=== PATIENT | male | born 1975 | race Caucasian/White ===

== ENCOUNTER 2018-07-29 00:34 | Emergency (ER) | payer BC, SELFPAY ==
[2018-07-29 00:35] VITALS: BP 143/101; PULSE 87; RESP 18; TEMP 36.6; O2SAT 97; BMI 35.2
--- NOTE | 2018-07-29 00:49 | EKG12_ITS ---
Test Reason : CP Blood Pressure : / mmHG Vent. Rate : 087 BPM Atrial Rate : 087 BPM P-R Int : 164 ms QRS Dur : 106 ms QT Int : 356 ms P-R-T Axes : 045 -16 027 degrees QTc Int : 428 ms Normal sinus rhythm Minimal voltage criteria for LVH, may be normal variant Borderline ECG Confirmed by ISACC EMERSON, JULISA ([id number]), editorial clerk MARIO HANSON ([id number]) on 08/03/2018 9:50:58 AM Referred By: GIOVANNY Confirmed By:JULISA DEXTER MD
--- NOTE | 2018-07-29 00:49 | RAD_ITS ---
HISTORY: Chest Pain EXAM:XR Chest 2 Views: COMPARISON: None FINDINGS: EKG leads in place. On the frontal view, shallow inspiration with mild hypoventilation of the lung bases. No acute infiltrate. Normal heart size. No vascular congestion or pleural effusion. No pneumothorax. The bony thorax appears intact. History of RAD/Chest PA and Lateral IMPRESSION: No acute cardiopulmonary disease. at 0226 Reported and signed by: Med Thomas MD Electronically Signed: Med Thomas, at 2:25 EST Tel , Service support ,
[2018-07-29] MEDS: Aspirin 81 MG TAB.CHEW 324 MG PO (00:56)
[2018-07-29 00:58] VITALS: BP 140/98; PULSE 78; RESP 16; O2SAT 98
[2018-07-29 01:08] LABS: Absolute Lymphocyte Count 3.83 X10^3/ul (0.83-4.51); Absolute Neutrophil Count 5.3 X10^3/uL (2.0-7.7); Basophil# 0.04 X10^3/uL; Basophil% 0.4 % (0-1); Eosinophil# 0.26 X10^3/uL; Eosinophils% 2.6 % (0-5); Hematocrit 41.4 % (40-54); Hemoglobin 13.9 g/dl (13.0-16.5); Lymphocyte # 3.83 X10^3/ul (4.0); Lymphocyte % 38.5 % (19-41); Mean Corp Hgb Conc 33.6 g/gl (32-36); Mean Corpuscular Hgb 28.7 pg (27.0-32.0); Mean Corpuscular Volume 85.5 fL (80-94); Mean Platelet Vol. 9.8 fl (6.2-12.0); Monocyte# 0.53 X10^3/uL; Monocyte% 5.3 % (0-10); Neutrophil # 5.26 X10^3/uL (2.7-7.7); Neutrophil % 52.9 % (47-70); Platelet Count 301 K/mm3 (150-450); RBC Distribution Width CV 13.1 % (11.6-14.6); RBC Distribution Width SD 41.1 fl (35.1-43.9); Red Blood Count 4.84 M/mm3 (4.6-6.2)
[2018-07-29 01:09] LABS: POSITIVE COUNT NO; POSITIVE DIFFERENTIAL NO; POSITIVE MORPHOLOGY NO
[2018-07-29 01:28] LABS: Anion Gap 8 (5-15); BUN 22 mg/dL (7-18); BUN/Creat Ratio 19.3 RATIO (10-20); Calcium,Total 8.7 mg/dL (8.5-10.1); Chloride 105 mmol/L (98-107); Creatinine, Serum 1.14 mg/dL (0.70-1.30); EST Glomerular Filtration Rate 75 mL/min (>60); Est Glom Filt Rate - Afr Amer 90 mL/min (>60); Estimated Creatinine Clearance 100.89 ml/min; Glucose 106 mg/dL (74-106); Potassium 4.1 mmol/L (3.5-5.1); Sodium Level 138 mmol/L (136-145)
[2018-07-29 02:16] VITALS: BP 134/90; PULSE 68; RESP 16; O2SAT 96
--- NOTE | 2018-07-29 02:45 | ED.DCSUM_ITS ---
- ER Visit Summary Date of Service: 07/29/18 Chief Complaint: Chest pain History of Present Illness: The patient is a 42 M who presents with chest pain. It began about 4 hours ago while at rest. He describes it as a heaviness in his left upper chest. He also had a sharp pain in his left wrist. He states he just feels weird. He also reports nausea. No vomiting diaphoresis shortness of breath. 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 He denies any recent illness. There is a family history of coronary disease in his father had an OH in his 40s. Patient states he had a normal cardiac catheterization 12 years ago. He has no medical problems such as diabetes hypertension hyperlipidemia. He has not a smoker. Physical Examination: Afebrile vitals are unremarkable except blood pressure 143/101 Moist mucous membranes Heart regular rate and rhythm Lungs are clear Abdomen soft nontender nondistended Extremities nontender with symmetric pulses Test Results: EKG shows normal sinus rhythm at a rate of 87 with no acute ischemic changes. CBC BMP unremarkable. Troponin is negative. Two-view chest x-ray shows no acute disease. Emergency Department Course and Treatment: Patient's DI risk score is 0. His heart score is 1. He presents with atypical symptoms. He had already had symptoms for 4 hours at the time of presentation with a negative troponin. I feel this is very unlikely to be due to cardiac ischemia. I do believe he is appropriate for discharge and outpatient follow-up. He was instructed on specific signs and symptoms to monitor for. He understands to return for new or worsening symptoms. All questions answered bedside. Patient agreeable to this plan. Patient is discharged. Treatment Plan: [] Disposition: Discharge Impression: Chest pain This note was generated with [employer] dictation software. It may contain incorrect words, spelling, and punctuation that were not noted in review of the chart prior to signing ED Disposition - Plan for ED Patient: Referrals: Stef Goodman MD [Primary Care Provider] -
--- NOTE | 2018-07-29 02:45 | ED.DEP ---
ED Disposition - Plan for ED Patient: Instructions: ED Chest Pain Atypical Unkn Cause Referrals: Stef Goodman MD [Primary Care Provider] -
[2018-07-29 02:54] VITALS: BP 131/90; PULSE 64; RESP 12; O2SAT 95
== END 2018-07-29 02:54 | disposition home or self-care (01) ==
LOC: ED 01:07
PROVIDERS: Emergency Provider Emergency Medicine; Family Provider Internal Medicine; PCP Internal Medicine
DX: R07.9 Chest pain, unspecified (principal); Z72.0 Tobacco use; Z82.49 Family history of ischemic heart disease and other diseases of the circulatory system
CPT/HCPCS: 71046; 80048; 84484; 85025; 93005; 99285; A4216

== ENCOUNTER 2019-09-19 15:53 | Emergency (ER) | payer BC, SELFPAY ==
[2019-09-19 15:53] VITALS: BP 168/79; PULSE 95; RESP 16; TEMP 36.9; O2SAT 98; BMI 33.7; BMI 35.2
--- NOTE | 2019-09-19 16:00 | ED.VIS.LOWEX ---
History of Present Illness Chief Complaint: Lower Extremity Injury Informant: Patient Occurred: Hours - 1 Mechanism/Context: - - twisted ankle while coming down a step outside his home Context: Sudden Onset Timing: Continuous Quality of Pain: Aching - and felt a pop lateral left ankle Location: left ankle Current Severity: Moderate Maximum Severity: Severe Worsened by: trying to WB Relieved by: rest, not moving Associated Symptoms: Loss of Funtion - can't weight bear LLE now. Negative for: Parasthesia, Weakness Narrative: Denies other injury. Pain limited to lateral ankle, lateral/dorsal midfoot. Past Medical History - Allergies and Home Meds Allergies/Adverse Reactions: Allergies No Known Allergies Allergy (Verified 09/19/19 15:54) Primary Care Physician: Stef Goodman MD [Primary Care Provider] - Past Medical History: None Lives: With Family Smoking Status: Former smoker Review of Systems Musculoskeletal: Reports: Extremity Pain Skin: Denies: Rash, Wounds Neurological: Denies: Headache, Weakness, Numbness Physical Exam Vital Signs/Narrative: Vital Signs Temp Pulse Resp BP Pulse Ox 09/19/19 15:53 98.4 F 95 16 168/79 H 98 Inital Vital Signs reviewed: Yes - Extremity Exam Left Ankle: Limited ROM, - - Mild lateral ankle swelling, and tenderness just distal and anterior to the lateral malleolus. The posterior aspect of the malleolus and the rest of the fibula including the head are nontender, the anterior aspect is tender. The base of the fifth metatarsal was nontender as is the rest of the foot. No instability or medial malleolus tenderness, no deformities. General: Well nourished, Well developed, - - nad Skin: Normal color, No rash, No Trauma, - - Skin intact Neurological: Alert, Oriented x3, Cranial nerves II-XII grossly intact, Normal Strength, Normal Sensation Psychological: Normal affect, Normal Mood Diagnostic/Tx/Re-eval - Medical Decision Making On my interpretation 3 view x-ray of the left ankle are negative and unremarkable. Consistent with a sprain, as is his exam. Given an Aircast, ibuprofen, crutches and appropriate instructions for follow-up. ED Disposition - Plan for ED Patient: Disposition: Home or Assisted Living Diagnosis: Left ankle sprain Instructions: ED Sprain Ankle W X Ray Referrals: Stef Goodman MD [Primary Care Provider] - 1-2 Weeks (if not improving) Additional Instructions: Ibuprofen as needed for pain, swelling.
--- NOTE | 2019-09-19 16:15 | RAD_ITS ---
STUDY: X-RAY - LEFT ANKLE REASON FOR EXAM: Male, 44 years old. Pt twisted left ankle today. Generalized pain. TECHNIQUE: 3 view(s) of the ankle. COMPARISON: None. FINDINGS: Normal visualized distal tibia and fibula. Normal medial and lateral malleoli. Normal tibiotalar articulation and ankle mortise. Normal visualized talus and calcaneus. The visualized subtalar, talonavicular, calcaneocuboid and tarsal articulations are normal. The soft tissue structures are unremarkable. RAD/Ankle min 3 Views IMPRESSION: No acute osseous injury. Electronically Signed: Asha Farah MD at 16:49 EDT Tel , Service support ,
[2019-09-19] MEDS: Ibuprofen 600 MG Tablet PO (16:20)
== END 2019-09-19 16:55 | disposition home or self-care (01) ==
PROVIDERS: Emergency Provider Emergency Medicine; PCP Internal Medicine
DX: S93.402A Sprain of unspecified ligament of left ankle, initial encounter (principal); Z87.891 Personal history of nicotine dependence; X50.1XXA Overexertion from prolonged static or awkward postures, initial encounter
CPT/HCPCS: 73610; 99284

== ENCOUNTER → 2020-01-14 16:39 | Outpatient (CLI) | payer BC, SELFPAY ==
--- NOTE | 2020-01-14 | VAS_PTH ---
PATIENT: YUDY MILLAN LOC: [facility] U#:[id number] AGE/SX: 49/M ROOM: RE01/14/[address]: Dr. Giovanny Larios MD : 1975 BED: DIS: SPEC #: [id number] RECD: 01/14/20 16:16 STATUS: SHELIA ANITA #: [id number] TALHA: 01/14/20 00:[address]: Giovanny Larios DEPT: SURGICAL PATHOLOGY RECD BY: Cameron Carson ENTERED: 01/17/20 08:00 SP TYPE: VAS OTHR DR: Dr. Stef Goodman MD Tissues: A - Vas deferens, NOS B - Vas deferens, NOS Procedures: Surgery Specimen Level II HEADER OPERATION: Bilateral partial vasectomy PRE-OP DIAGNOSIS: Sterilization TISSUE SUBMITTED: A - Right vas deferens, B - Left vas deferens MICROSCOPIC DIAGNOSIS A. Right vas deferens, partial vasectomy: Complete segment of vas deferens with no pathologic change. B. Left vas deferens, partial vasectomy: Complete segment of vas deferens with no pathologic change. AM:gela 01/18/20 MICROSCOPIC DESCRIPTION Slides are reviewed. GROSS DESCRIPTION A - Received is one container designated right vas deferens. The specimen consists of a cylindrical segment of pink-almaraz soft tissue measuring 1.2 cm in length and 0.2 cm in maximum diameter. The specimen is serially sectioned and totally submitted in one cassette. B - Received is one container designated right vas deferens. The specimen consists of a cylindrical segment of pink-almaraz soft tissue measuring left 1.3 cm in length and 0.2 cm in maximum diameter. The specimen is serially sectioned and totally submitted in one cassette. / AM:gela 01/17/20 TC:4 [facility]: [id number] x2
[2020-01-14 15:53] VITALS: BMI 33.7
== END ==
PROVIDERS: PCP Internal Medicine; Referring Provider Surgery; Visit Provider Surgery
DX: Z30.2 Encounter for sterilization (principal)
CPT/HCPCS: 88302

== ENCOUNTER → 2020-04-06 15:39 | Outpatient (CLI) | payer BC, SELFPAY ==
[2020-01-14 15:53] VITALS: BMI 33.7
[2020-04-05 16:43] LABS: Hematocrit 42.2 % (40-54); Hemoglobin 13.7 g/dL (13.0-16.5); Mean Corp Hgb Conc 32.5 g/dL (32-36); Mean Corpuscular Volume 86.3 fL (80-94); Mean Platelet Vol. 10.1 fl (6.2-12.0); Platelet Count 353 K/mm3 (150-450); RBC Distribution Width CV 12.9 % (11.6-14.6); Red Blood Count 4.89 M/mm3 (4.6-6.2); White Blood Count 9.5 K/mm3 (4.4-11.0)
[2020-04-05 17:14] LABS: Anion Gap 6 (5-15); BUN 16 mg/dL (7-18); Calcium,Total 8.8 mg/dL (8.5-10.1); Chloride 105 mmol/L (98-107); EST Glomerular Filtration Rate 86 mL/min (>60); Est Glom Filt Rate - Afr Amer 104 mL/min (>60); Glucose 84 mg/dL (74-106); Sodium Level 139 mmol/L (136-145)
--- NOTE | 2020-04-06 15:34 | EKG12_ITS ---
Test Reason : PRE OP Blood Pressure : / mmHG Vent. Rate : 074 BPM Atrial Rate : 074 BPM P-R Int : 166 ms QRS Dur : 100 ms QT Int : 380 ms P-R-T Axes : 036 -15 -01 degrees QTc Int : 421 ms Normal sinus rhythm Normal ECG Confirmed by RAMANA EMERSON, WENDY ([id number]), newspaper editor BANDAR FULLER ([id number]) on 04/10/2020 8:02:41 AM Referred By: Jun Mccrary Confirmed By:WENDY BOLES MD
== END ==
PROVIDERS: PCP Internal Medicine; Referring Provider Orthopaedic Surgery; Visit Provider Orthopaedic Surgery
DX: Z01.818 Encounter for other preprocedural examination (principal)
CPT/HCPCS: 36415; 80048; 85027; 87635; 93005; C9803; U0003

== ENCOUNTER 2020-09-19 05:51 | Emergency (ER) | payer BC, SELFPAY ==
[2020-01-14 15:53] VITALS: BMI 33.7
[2020-09-19 05:53] VITALS: BP 149/94; PULSE 65; RESP 12; TEMP 36.1; O2SAT 95; BMI 36.3
--- NOTE | 2020-09-19 06:05 | CT_ITS ---
STUDY: CT BRAIN WITHOUT CONTRAST REASON FOR EXAM: Male, 45 years old. New onset vertigo RADIATION DOSAGE (If Supplied By Facility): CTDIvol = ( 44.99 ) mGy, DLP = ( 796.11 ) mGycm TECHNIQUE: Transaxial CT imaging of the brain was performed without administration of intravenous contrast material. Individualized dose optimization techniques were used for this CT. COMPARISON: No relevant priors. FINDINGS: Normal soft tissue structures. Normal calvarium. Normal size ventricles and extra-axial spaces for the patient''s age. Normal white matter tracts of the cerebral hemispheres. Normal basal ganglia and thalami. Normal brainstem. Normal cerebellum. There is no intracranial hemorrhage. There are no findings of an acute ischemic infarction. There is minimal ethmoid sinus mucosal thickening. The mastoid air cells are clear. CT/Brain/Head without Contrast IMPRESSION: Normal unenhanced CT scan of the brain. Electronically Signed: Laura López MD at 6:57 EDT Tel , Service support ,
[2020-09-19] MEDS: Meclizine HCl 25 MG Tablet PO (06:14)
--- NOTE | 2020-09-19 06:26 | ED.VIS.GEN ---
History of Present Illness Chief Complaint: Dizziness Informant: Patient Narrative: Patient is a 45-year-old previously healthy male who presents to the emergency department for dizziness. This woke him up out of his sleep around 4 AM this morning. He feels like the room is spinning around him. He states that it felt like he was spinning so bad that he could potentially pass out. His symptoms are improving at this point. Not tried taking anything for it. He has been nauseous and dry heaving with it. He is getting over a sinus infection. He has been having a runny nose and a mild cough. He just completed a course of amoxicillin for this. He denies any ear pain or ringing in his ears. He denies a sore throat. He has been using an allergy medication. No headache. No weakness or loss of sensation in any arm or leg. He denies any chest pain, shortness of breath or heart palpitations. He denies any history of strokes, DVT/PE or heart attacks. He has never had vertigo before. No neck stiffness. Patient has had a negative Covid test at the onset of his symptoms. Past Medical History - Allergies and Home Meds Allergies/Adverse Reactions: Allergies No Known Allergies Allergy (Verified 09/19/20 05:52) Primary Care Physician: Stef Goodman MD [Primary Care Provider] - 2 Days Prior records reviewed: Yes Past Medical History: None Surgical History: noncontributory Smoking Status: Never smoker Review of Systems All systems negative except as indicated General: Denies: Chills, Fever, Sweats Eyes: Denies: Visual changes - bilaterally, Diplopia ENT: Reports: - - Sinus pressure. Denies: Rhinorrhea, Sore throat Cardiovascular: Denies: Chest pain, Palpitations Respiratory: Denies: Dyspnea, Cough, Dyspnea on exertion Gastrointestinal: Reports: Nausea. Denies: Abdominal pain, Vomiting, Diarrhea, Melena, Hematochezia Genitourinary: Denies: Dysuria, Hematuria, Frequency Musculoskeletal: Denies: Back pain, Extremity Pain Skin: Denies: Rash, Wounds Neurological: Reports: - - Vertigo. Denies: Headache, Weakness, Numbness Physical Exam Vital Signs/Narrative: Vital Signs Temp Pulse Resp BP Pulse Ox 09/19/20 05:53 97.0 F L 65 12 149/94 H 95 Inital Vital Signs reviewed: Yes General: Well nourished, Well developed, No Acute Distress Head: Normocephalic, Atraumatic Eyes: Perrl, EOMI, - - Fatigable nystagmus bilaterally but worse to the right. Negative test of skew ENT: Moist mucous membranes, No rhinorrhea, TM's clear, - Neck: Supple, Nontender Cardiovascular: Regular rate, Regular rhythm, No murmurs Respiratory: No distress, CTA bilaterally, Chest nontender Abdomen: Soft, Nontender, Nondistended, Normal bowel sounds Back: Nontender, Normal Inspection Extremities: Nontender, No edema Skin: Normal color, No rash Neurological: Alert, Oriented x3, Cranial nerves II-XII grossly intact, Normal Strength, Normal Sensation, - - No discoordination with [id number] and qcew-[id number]-[id number] test. Negative for: Left side facial droop, Right side facial droop Psychological: Normal affect, Normal Mood Diagnostic/Tx/Re-eval - Medical Decision Making Patient presents to the ED for vertigo-like symptoms. The room has been spinning around him and has been getting nauseous with this. When keeping his head perfectly still he feels like his symptoms are resolving. He does not have any focal deficits on physical exam. I have low concern for cerebellar stroke. Since this is new onset will check a CT scan of the head for any obvious masses or bleeds. He is given a dose of meclizine for symptomatic treatment. This does not sound like lightheadedness is in his going to pass out due to cardiac issue with any arrhythmia, ACS. Patient CT scan of his head did not reveal any acute intracranial abnormalities. After the meclizine treatment he is feeling much better. He was able to get up and walk around the room without any repeat symptoms. He does feel comfortable going home at this time. I believe that this is most likely peripheral vertigo. I would not expect a cerebellar stroke to have such rapid improvement. I did write him a prescription for the meclizine. He needs to follow-up with his PCP. Return precautions including any worsening symptoms, severe headaches or any focal deficits are reviewed with him. He is agreeable with this plan. All questions answered. ED Disposition - Plan for ED Patient: Disposition: Home or Assisted Living Diagnosis: Vertigo Instructions: ED Vertigo, Unspecified Prescriptions: Meclizine HCl 25 mg PO TID #20 tablet Transmission Status: Received by [id number] Referrals: Stef Goodman MD [Primary Care Provider] - 2 Days
[2020-09-19 07:07] VITALS: BP 140/88; PULSE 67; RESP 18; O2SAT 99
== END 2020-09-19 07:08 | disposition home or self-care (01) ==
PROVIDERS: Emergency Provider Emergency Medicine; PCP Internal Medicine
DX: R42 Dizziness and giddiness (principal); R05 Cough; R11.0 Nausea
CPT/HCPCS: 70450; 99283

== ENCOUNTER 2020-09-21 20:58 | Emergency (ER) | payer BC, SELFPAY ==
[2020-09-21 20:59] VITALS: BP 150/100; PULSE 67; RESP 16; TEMP 36.4; O2SAT 99; BMI 34.9
[2020-09-21 21:06] VITALS: BP 142/106; PULSE 67; RESP 15; O2SAT 95
--- NOTE | 2020-09-21 21:31 | EKG12_ITS ---
Test Reason : NUMBNESS/TINGLING Blood Pressure : / mmHG Vent. Rate : 069 BPM Atrial Rate : 069 BPM P-R Int : 170 ms QRS Dur : 102 ms QT Int : 404 ms P-R-T Axes : 017 -15 -03 degrees QTc Int : 432 ms Normal sinus rhythm Minimal voltage criteria for LVH, may be normal variant Borderline ECG Confirmed by RAMANA EMERSON, WENDY ([id number]), film editor supervisor BANDAR FULLER ([id number]) on 09/22/2020 12:56:30 PM Referred By: ANIYAH Confirmed By:WENDY BOLES MD
--- NOTE | 2020-09-21 21:33 | CT_ITS ---
STUDY: CTA HEAD AND NECK WITH CONTRAST REASON FOR EXAM: Male, 45 years old. vertigo RADIATION DOSAGE (If Supplied By Facility): CTDIvol = ( 12.67 ) mGy, DLP = ( 1639.55 ) mGycm TECHNIQUE: CT angiography was performed with a multi-detector CT scanner. Data acquisition was obtained from the skull base through the vertex following intravenous administration of . MIP images were reconstructed from the axial data set. Post-processing of the angiographic images was performed, with multiplanar reformation and 3D reconstruction. Individualized dose optimization techniques were used for this CT. COMPARISON: No relevant priors. FINDINGS: Normal bilateral petrous carotid arteries. Normal right cavernous carotid artery with a normal supraclinoid bifurcation. Normal left cavernous carotid artery with a normal supraclinoid bifurcation. Normal right A1 segments of the anterior cerebral artery. Normal left A1 segments of the anterior cerebral artery. Normal intact anterior communicating artery (ACOM). Normal bilateral A2 segments of the anterior cerebral arteries. Normal right M1 and M2 segments of the middle cerebral arteries, with a normal M1 bifurcation. Normal left M1 and M2 segments of the middle cerebral arteries, with a normal M1 bifurcation. Posterior communicating arteries are not visualized consistent with normal variant.). Normal bilateral vertebral arteries. Normal basilar artery with a normal basilar bifurcation. The visualized bilateral superior cerebellar (SCA) arteries are normal. Normal bilateral P1, P2 and visualized P3 segments of the posterior cerebral arteries. There is no demonstrated aneurysm of the [place] of [place]. There is no demonstrated abnormality of the visualized brain. AORTIC ARCH: Normal visualized aortic arch. Normal origins of the brachiocephalic, left common carotid, and left subclavian arteries. RIGHT CAROTID ARTERIES: Normal right common carotid artery (CCA). Normal right common carotid bulb. Normal origin of the right internal carotid (ICA) artery without a hemodynamically significant stenosis. Normal visualized cervical portion of the right internal carotid artery. Normal origin of the right external carotid artery (ECA). LEFT CAROTID ARTERIES: Normal left common carotid artery (CCA). Normal left common carotid bulb. Normal origin of the left internal carotid (ICA) artery without a hemodynamically significant stenosis. Normal visualized cervical portion of the left internal carotid artery. Normal origin of the left external carotid artery (ECA). VERTEBRAL ARTERIES: Normal bilateral vertebral arteries. Incidental finding of large retrosternal nodular thyroid goiter larger on the left CT/CTA Head AND Neck W/ Contrast IMPRESSION: Normal CTA Head and neck with contrast. Incidental finding of retrosternal nodular thyroid goiter larger on the left which may be further assessed with ultrasound if clinically indicated Electronically Signed: Thuan Martins MD at 22:58 EDT , Service support ,
[2020-09-21 21:40] LABS: Absolute Lymphocyte Count 2.46 X10^3/uL (0.83-4.51); Basophil# 0.05 X10^3/uL; Basophil% 0.5 % (0-1); Eosinophil# 0.21 X10^3/uL; Eosinophils% 2.3 % (0-5); Hematocrit 44.7 % (40-54); Hemoglobin 14.4 g/dL (13.0-16.5); Lymphocyte # 2.46 X10^3/ul (4.0); Lymphocyte % 26.6 % (19-41); Mean Corp Hgb Conc 32.2 g/dL (32-36); Mean Corpuscular Hgb 27.9 pg (27.0-32.0); Mean Corpuscular Volume 86.5 fL (80-94); Mean Platelet Vol. 10.2 fl (6.2-12.0); Monocyte# 0.44 X10^3/uL; Monocyte% 4.8 % (0-10); NRBC Flagged by Analyzer 0 % (0-5); Neutrophil # 6.04 X10^3/uL (2.7-7.7); Neutrophil % 65.3 % (47-70); Platelet Count 369 K/mm3 (150-450); RBC Distribution Width CV 12.5 % (11.6-14.6); RBC Distribution Width SD 39.4 fl (35.1-43.9); Red Blood Count 5.17 M/mm3 (4.6-6.2); White Blood Count 9.3 K/mm3 (4.4-11.0)
--- NOTE | 2020-09-21 21:42 | RAD_ITS ---
STUDY: X-RAY CHEST REASON FOR EXAM: Male, 45 years old. vertigo TECHNIQUE: AP portable COMPARISON: 07/29/2018. FINDINGS: Minor interstitial thickening in the right lower lobe.. There is no demonstrated pleural abnormality. Borderline cardiomegaly. Normal mediastinum and karen. Normal visualized pulmonary arteries. Normal visualized aortic arch and descending thoracic aorta. Normal visualized thoracic spine. Normal visualized ribs, clavicles, and shoulders. Mild deviation of the trachea towards the right which may be on the basis of enlargement of the left lobe of the thyroid There is no demonstrated abnormality of the visualized soft tissue structures of the upper abdomen. RAD/Chest 1 View (Portable) IMPRESSION: No acute cardiopulmonary pathology Question mild left thyromegaly. This may be further assessed with ultrasound if clinically indicated Electronically Signed: Thuan Martins MD at 22:14 EDT , Service support ,
[2020-09-21] MEDS: 0.9% Normal Saline 1,000 ML 1000 ML IV (21:44)
[2020-09-21] MEDS: LORazepam 2 MG/ML Syringe 1 MG IV (21:44)
[2020-09-21 21:45] LABS: Prothrombin Time (Protime)PT. 12.7 SECONDS (11.7-14.9)
[2020-09-21 22:01] VITALS: PULSE 91; RESP 14; O2SAT 99
[2020-09-21 22:14] LABS: Anion Gap 4 (5-15); BUN 17 mg/dL (7-18); BUN/Creat Ratio 16.8 RATIO (10-20); Chloride 104 mmol/L (98-107); Creatinine, Serum 1.01 mg/dL (0.70-1.30); EST Glomerular Filtration Rate 85 mL/min (>60); Est Glom Filt Rate - Afr Amer 103 mL/min (>60); Estimated Creatinine Clearance 110.39 ml/min; Glucose 103 mg/dL (74-106); Potassium 3.9 mmol/L (3.5-5.1); Sodium Level 136 mmol/L (136-145)
[2020-09-21 22:50] LABS: Thyroid Stim Hormone (TSH) 2.92 uIU/mL (0.358-3.74)
[2020-09-21 23:03] VITALS: BP 147/98; PULSE 64; RESP 18; O2SAT 99
--- NOTE | 2020-09-21 23:20 | ED.DCSUM_ITS ---
- ER Visit Summary Date of Service: 09/21/20 Chief Complaint: Dizziness History of Present Illness: The patient is a 45 M with dizziness for 3 days. He feels like the room is spinning. Worse with movement. He was seen in the ED for this previously. He had imaging that was unremarkable. He was prescribed meclizine, but it is not working. He reports some paresthesias in his left fourth and fifth digits that radiates up into his axilla on the ulnar side of his arm. No other symptoms with this. No hearing changes, vision changes, speech changes, facial droop, weakness, or numbness. Physical Examination: Afebrile and vital signs unremarkable except blood pressure 142/106. HEENT exam unremarkable. Cranial nerves intact. NIH stroke scale is 1 for paresthesias in his fingers. Test Results: EKG showed sinus rhythm at a rate 69. Chest x-ray showed mild lateral megaly. CT head and neck showed nothing acute but he does have a thyroid goiter. CBC, metabolic panel, coags, troponin, TSH unremarkable. Emergency Department Course and Treatment: This sounds like peripheral vertigo. I am concerned because the meclizine was not working and his symptoms have worsened. CTA ordered as above. He was treated with Ativan. His symptoms completely resolved. He was able to eat and ambulate without assistance. I advised the patient that I believe this is peripheral vertigo. I cannot rule out central vertigo without further inpatient evaluation, but central vertigo/stroke is extremely unlikely. His paresthesias for a C8 dermatome pattern. He has no other stroke symptoms. Shared decision-making was utilized. Patient would like to try outpatient follow-up. He was referred to ENT. Prescription for Valium as needed. Follow- up with primary care for a thyroid goiter. Treatment Plan: As above Disposition: Discharge Impression: Vertigo, thyroid goiter This note was generated with [employer] dictation software. It may contain incorrect words, spelling, and punctuation that were not noted in review of the chart prior to signing ED Disposition - Plan for ED Patient: Referrals: Stef Goodman MD [Primary Care Provider] -
--- NOTE | 2020-09-21 23:24 | ED.DEP ---
ED Disposition - Plan for ED Patient: Instructions: ED Vertigo, Unspecified Prescriptions: Diazepam [Valium] 2 mg PO TID PRN PRN #9 tab PRN Reason: Vertigo Prescription Printed Referrals: Ernie Jamil MD [STAFF PHYSICIAN] - Stef Goodman MD [Primary Care Provider] -
[2020-09-21 23:25] VITALS: BP 104/104; PULSE 60; RESP 19; O2SAT 97
== END 2020-09-21 23:33 | disposition home or self-care (01) ==
LOC: ED 21:33
PROVIDERS: Emergency Provider Emergency Medicine; PCP Internal Medicine
DX: R42 Dizziness and giddiness (principal); E04.9 Nontoxic goiter, unspecified; R20.2 Paresthesia of skin
CPT/HCPCS: 70496; 70498; 71045; 80048; 84443; 84484; 85025; 85610; 85730; 93005; 96374; 99285; J7030; Q9967; A4216

== ENCOUNTER 2022-07-16 22:57 | Inpatient (IN) | payer BC, SELFPAY ==
[2022-07-16 22:57] VITALS: BP 164/100; PULSE 75; RESP 17; TEMP 36.8; O2SAT 97; BMI 37.3
--- NOTE | 2022-07-16 23:26 | EKG12_ITS ---
Test Reason : REPEAT CP Blood Pressure : / mmHG Vent. Rate : 059 BPM Atrial Rate : 059 BPM P-R Int : 170 ms QRS Dur : 100 ms QT Int : 420 ms P-R-T Axes : 021 -13 -06 degrees QTc Int : 415 ms Sinus bradycardia Otherwise normal ECG When compared with ECG of 16-JUL-2022 23:00, MANUAL COMPARISON REQUIRED, DATA IS UNCONFIRMED Confirmed by ISACC EMERSON, JULISA ([id number]), non linear editor BANDAR FULLER ([id number]) on 07/22/2022 9:30:29 AM Referred By: LINK Confirmed By:JULISA DEXTER MD
--- NOTE | 2022-07-16 23:26 | RAD_ITS ---
EXAM: XR CHEST, 2 VIEWS CLINICAL INDICATION: chest pain TECHNIQUE: Frontal and lateral views of the chest. This report was created using [employer] report generation technology. COMPARISON: 09/21/2020. FINDINGS: LUNGS AND PLEURAL SPACES: Unremarkable. No consolidation or edema. No pneumothorax. No effusion. HEART: Unremarkable. Cardiac silhouette not enlarged. MEDIASTINUM: Central airways and mediastinal contour are unremarkable. BONES/JOINTS: Unremarkable. SOFT TISSUES: Unremarkable. RAD/Chest PA and Lateral IMPRESSION: No radiographic evidence of acute cardiopulmonary disease. Electronically Signed: Jun Ulrich MD at 23:58 EST ,
--- NOTE | 2022-07-16 23:29 | EX.ED.DYSGE1 ---
HPI History of Present Illness Chief Complaint: Chest Pain Narrative Narrative: Patient is a 46-year-old male with a past medical history of viral myocarditis and chews nicotine. He also reports a past medical history of hypothyroidism secondary to thyroid removal from thyroid cancer. he states that today horses got out and he was running through the snow on mud trying to find them and he tripped and fell and caught himself with his arms. He states that he did not feel pain right away but a few hours later began to notice pain in his left chest wall. He states his father had a heart attack at age 49 which is roughly his age and the fact he has had myocarditis in the past he is concerned that this chest pain is not muscle but truly cardiac and secondary to his comes in for evaluation. He denies any nausea vomiting diaphoresis shortness of breath associated with this. He denies any recent travel surgery or history of DVT/PE. [facility] Medical History (Updated 07/17/22 @ 02:[address] Janiya Lee MD) Chewing tobacco use History of viral myocarditis Hypothyroidism Obesity Thyroid cancer Home Medications cholecalciferol (vitamin D3) 1,250 mcg (50,000 unit) capsule 5,000 unit PO DAILY 07/17/22 [History Last Taken Unknown] levothyroxine 150 mcg tablet 150 mcg PO DAILY 07/17/22 [History Last Taken Unknown] levothyroxine 200 mcg tablet 200 mcg PO DAILY 07/17/22 [History Last Taken Unknown] Allergy/AdvReac Type Severity Reaction Status Date / Time No Known Allergies Allergy Verified 09/21/20 21:00 Family History (Updated 07/17/22 @ 01:[address] Janiya Lee MD) Father Diabetes Hypertension CAD (coronary artery disease) Myocardial infarction Mother Hypertension Surgical History (Updated 07/17/22 @ 02:[address] Janiya Lee MD) H/O vasectomy History of appendectomy History of arthroplasty of right knee History of thyroidectomy Social History (Updated 01/24/20 @ 14:[address] Giovanny Larios MD) Smoking Status: Never smoker Smokeless tobacco user: chewing tobacco ROS ROS ED Constitutional Constitutional ED: Denies chills or fever(s) ENT ENT ED: Denies sore throat Cardiovascular Cardiovascular: Reports chest pain; Denies palpitations or racing heartbeat Respiratory/Chest Respiratory/Chest: Denies cough or dyspnea Gastrointestinal Gastrointestinal: Denies abdominal pain, diarrhea, nausea or vomiting Genitourinary Genitourinary ED: Denies dysuria Musculoskeletal Musculoskeletal: Denies myalgias Integumentary Denies rash Neurologic Neurologic: Denies headache(s) Hematologic/Lymphatic Hematologic/Lymphatic: Denies easy bleeding or easy bruising EXAM Physical Exam Const Vital Signs: 07/16/22 22:57 07/17/22 00:52 07/17/22 01:46 Temperature 98.2 F Temperature Source Temporal Pulse Rate 75 64 61 Respiratory Rate 17 Blood Pressure 164/100 H 181/108 H 155/105 H Blood Pressure Mean 121 132 Pulse Ox 97 97 Oxygen Delivery Method Room Air Room Air 07/17/22 01:47 07/17/22 01:51 07/17/22 02:20 Temperature 98.1 F Temperature Source Temporal Pulse Rate 61 69 62 Respiratory Rate 18 18 Blood Pressure 155/105 H 143/92 H 153/97 H Blood Pressure Mean 121 115 Pulse Ox 98 97 Oxygen Delivery Method Room Air Room Air Positive well nourished and well developed General Appearance ED: well developed Eyes PERRL and EOMs intact bilaterally Neck supple Chest Wall Chest Narrative: There is mild pain on palpation along the left anterior chest wall without bony deformity or crepitance noted. No overlying soft tissue changes to suggest trauma or infection Resp normal respiratory effort and clear to auscultation bilaterally Cardio regular rate and regular rhythm Rate: other Other Details: Radial pulses are +2-4 bilaterally are equal and symmetric Carotid pulses are equal and symmetric as well GI normal to inspection, nondistended, normoactive bowel sounds, non-tender, non-distended and no masses GI Narrative: No voluntary guarding or rigidity no pulsatile mass Auscultation: normoactive bowel sounds Palpation: soft Extremity normal to inspection Extremity Narrative: No asymmetric edema no pitting edema negative Homans' sign bilaterally Neuro oriented x3 and CN's II-XII intact bilaterally Sensorium / Orientation: alert Psych mental status grossly normal Skin no rashes or lesions noted MDM MDM MDM Narrative Medical decision making narrative: Patient presented to the ER slightly hypertensive but otherwise with stable vitals. He is low risk for cardiovascular disease with his risk factors being family history and that he chews nicotine. However with the persistent pain and the remote history of myocarditis and elected perform a basic cardiac work-up. Blood work [place] [address]. Secondary to this a CTA was added which revealed no clinically significant findings. The case was discussed with cardiology who feels at this time as he has low risk factors and minimal pain there is no need for an emergent cath. They recommend patient be started on a heparin drip as the CTA shows no pericardial effusion. They state that they will most likely perform an echo and a heart cath if his symptoms persist and troponin continues to elevate. The patient did report mild increase in pain towards the end of his work-up as it went from a 2/3 up to a 6. At this time repeat EKG was obtained which also was similar to the initial with no obvious signs of MA or ischemia. Patient was given nitro and had improvement of pain from a 6 down to a 4. At this time he remains hemodynamically stable and secondary to his grossly elevated troponin and need for further work-up from this he will be admitted to the hospital for further care. The case was discussed with the medicine physician on-call and she agrees to admit him to the hospital at this time Lab Data Attestation: I reviewed the patient's lab results. Labs: Laboratory Results - last 24 hr 07/16/22 07/16/22 07/16/22 23:32 23:32 23:32 WBC 8.7 RBC 4.65 Hgb 13.1 Hct 39.5 L MCV 84.9 MCH 28.2 MCHC 33.2 RDW Std Deviation 39.9 RDW Coeff of Colleen 13.0 Plt Count 300 MPV 9.8 Immature Gran % (Auto) 1.300 H Neut % (Auto) 55.4 Lymph % (Auto) 33.8 [place] % (Auto) 6.4 Eos % (Auto) 2.4 Baso % (Auto) 0.7 Absolute Neuts (auto) 4.8 Absolute Lymphs (auto) 2.95 Nucleated RBC % 0 PT 13.1 INR 1.0 APTT 26.8 Sodium 139 Potassium 4.1 Chloride 108 H Carbon Dioxide 27.0 Anion Gap 4 L BUN 21 H Creatinine 1.08 Estim Creat Clear Calc 102.15 Est GFR (MDRD) Af Amer 94 Est GFR (MDRD) Non-Af 78 BUN/Creatinine Ratio 19.4 Glucose 113 H Calcium 8.4 L Magnesium 2.2 Troponin I High Sens 31337 H* TSH 07/16/22 23:32 WBC RBC Hgb Hct MCV MCH MCHC RDW Std Deviation RDW Coeff of [place] Plt Count MPV Immature Gran % (Auto) Neut % (Auto) Lymph % (Auto) [place] % (Auto) Eos % (Auto) Baso % (Auto) Absolute Neuts (auto) Absolute Lymphs (auto) Nucleated RBC % PT INR APTT Sodium Potassium Chloride Carbon Dioxide Anion Gap BUN Creatinine Estim Creat Clear Calc Est GFR (MDRD) Af Amer Est GFR (MDRD) Non-Af BUN/Creatinine Ratio Glucose Calcium Magnesium Troponin I High Sens TSH 0.40 Radiography Diagnostic Testing: Clinical Impression(s) from Imaging Studies Chest X-Ray 07/16/22 23:26 IMPRESSION: No radiographic evidence of acute cardiopulmonary disease. Electronically Signed: Jun Ulrich MD at 23:58 EST , 2 view chest x-ray as interpreted by the emergency medicine physician reveals no acute infiltrate pneumothorax or pleural effusion Discharge Plan Triage Chief Complaint: Chest Pain ED Provider: Ralph Barrientos Dx/Rx/DC Orders Prescriptions: No Action levothyroxine 150 mcg tablet 150 mcg PO DAILY Label Comments: TAKE 1 TABLET BY MOUTH ONCE DAILY. PLEASE TAKE FRIDAY AND FRIDAY Rx Instructions: FRIDAY AND FRIDAY levothyroxine 200 mcg tablet 200 mcg PO DAILY Label Comments: TAKE 1 TABLET BY MOUTH ONCE DAILY. PLEASE TAKE 1 TABLET FRIDAY- FRIDAY Rx Instructions: M-F cholecalciferol (vitamin D3) 1,250 mcg (50,000 unit) capsule 5,000 unit PO DAILY Label Comments: TAKE 1 CAPSULE BY MOUTH ONE TIME A WEEK. Primary Care Provider: Stef Goodman Referrals: Stef Goodman MD [Primary Care Provider] - Disposition Disposition: Acute Care Hospital [facility]
[2022-07-16 23:41] LABS: Absolute Lymphocyte Count 2.95 X10^3/uL (0.83-4.51); Absolute Neutrophil Count 4.8 X10^3/uL (2.0-7.7); Basophil# 0.06 X10^3/uL; Basophil% 0.7 % (0-1); Eosinophil# 0.21 X10^3/uL; Eosinophils% 2.4 % (0-5); Hematocrit 39.5 % (40-54); Hemoglobin 13.1 g/dL (13.0-16.5); Lymphocyte # 2.95 X10^3/ul (0.83-4.51); Lymphocyte % 33.8 % (19-41); Mean Corp Hgb Conc 33.2 g/dL (32-36); Mean Corpuscular Hgb 28.2 pg (27.0-32.0); Mean Corpuscular Volume 84.9 fL (80-94); Mean Platelet Vol. 9.8 fl (6.2-12.0); Monocyte# 0.56 X10^3/uL; Monocyte% 6.4 % (0-10); NRBC Flagged by Analyzer 0 % (0-5); Neutrophil # 4.84 X10^3/uL (2.7-7.7); Neutrophil % 55.4 % (47-70); Platelet Count 300 K/mm3 (150-450); RBC Distribution Width SD 39.9 fl (35.1-43.9); Red Blood Count 4.65 M/mm3 (4.6-6.2); White Blood Count 8.7 K/mm3 (4.4-11.0)
[2022-07-17] VITALS (19 sets, daily range): BP systolic 109–181; BP diastolic 70–108; PULSE 57–76; RESP 16–20; TEMP 36.3–37.2; O2SAT 92–98; BMI 37.8
[2022-07-17 00:01] LABS: Anion Gap 4 (5-15); BUN 21 mg/dL (7-18); BUN/Creat Ratio 19.4 RATIO (10-20); Calcium,Total 8.4 mg/dL (8.5-10.1); Chloride 108 mmol/L (98-107); Creatinine, Serum 1.08 mg/dL (0.70-1.30); EST Glomerular Filtration Rate 78 mL/min (>60); Est Glom Filt Rate - Afr Amer 94 mL/min (>60); Estimated Creatinine Clearance 102.15 ml/min; Glucose 113 mg/dL (74-106); Magnesium 2.2 mg/dL (1.6-2.6); Potassium 4.1 mmol/L (3.5-5.1); Sodium Level 139 mmol/L (136-145); Troponin-I HS 13849 pg/mL (3.0-78.0)
--- NOTE | 2022-07-17 00:01 | CT_ITS ---
STUDY: CTA CHEST REASON FOR EXAM: Male, 46 years old patient with chest pain. RADIATION DOSAGE (If Supplied By Facility): CTDIvol = ( 31.59 ) mGy, DLP = ( 801.21 ) mGycm TECHNIQUE: The examination was performed with the intravenous administration of 100 mL of Isovue-370. Post-processing of the angiographic images was performed, with multiplanar reformation and 3D reconstruction. Individualized dose optimization techniques were used for this CT. COMPARISON: Prior comparison studies are not available for review at this time. FINDINGS: Normal enhancement of the main pulmonary artery and right and left pulmonary arteries. Normal enhancement of the bilateral peripheral pulmonary arteries. There is no demonstrated pulmonary embolism. Normal thoracic aorta and visualized great vessels. There is no demonstrated aortic dissection. Normal heart and pericardium. Normal mediastinum. Normal hilar regions. Normal visualized trachea and bronchi. The lungs are well expanded. There appears to be mild bronchiectasis in the lower lobes. There is no obvious airspace consolidation. Normal pleura. Normal chest wall structures. Normal osseous structures. Normal visualized upper abdomen. CT/CTA Chest W/WO Contrast IMPRESSION: No CTA demonstrated pulmonary embolism or arterial dissection. Electronically Signed: Christy Taylor MD at 1:36 EST ,
[2022-07-17] MEDS: 0.9% Normal Saline 1,000 ML 999 ML IV (00:12)
[2022-07-17 00:26] LABS: Prothrombin Time (Protime)PT. 13.1 SECONDS (11.7-14.9)
[2022-07-17 00:29] LABS: Partial Thromboplast Time 26.8 Seconds (24.1-36.2)
[2022-07-17] MEDS: Nitroglycerin SL (ED/IMG/CATH) 0.4 MG TABLET SL ×2 (01:46→01:51)
[2022-07-17] MEDS: Ondansetron 4 MG/2 ML Vial IV (02:06)
[2022-07-17] MEDS: Morphine 4 MG/ML Syringe IV ×2 (02:06→05:26)
[2022-07-17 02:57] LABS: Troponin-I HS 16978 pg/mL (3.0-78.0)
--- NOTE | 2022-07-17 03:33 | HP.PCM.HOS_ITS ---
HPI - General General Date of Admission: 07/17/22 Date of Service: 07/17/22 Chief Complaint: Chest pain HPI Narrative The patient is a 46 y/o M w/ PMHx: Hx Migraines, Hx Thyroid CA s/p resection, Obesity, Chew tobacco, Hx BPPV, Hx prior viral myocarditis who presents to the [facility] ED on 07/17/22 with history of unfortunately his horses escaping prompting him to significantly exert himself running through the snow and mud reporting that he did fall and caught himself with his arms at that time with no specific chest pain at that time however hours later he began to have onset of left chest discomfort at ~ 3 pm described as a tightness/pressure-like sensation rated 6 out of 10 in severity with no associated nausea, emesis, diaphoresis or dyspnea however given ongoing discomfort to the left chest and history of his father having heart attack at the age of 49 prompted ED evaluation. Upon ED arrival he continues to have discomfort rated at 6 out of 10 in severity reporting as a tightness/pressure-like sensation to the left chest without any radiation. He denies any recent acute illness nor any marked ill contacts. He notes when he h ad remote viral myocarditis he had unremarkable evaluation including normal cardiac catheterization. In the ED following morphine administration patient reports his discomfort is gone down to 2 out of 10 in severity. Work-up in the ED included T98.2, heart rate 75, BP initially 164/100 with most recent BP 181/108, respiratory rate 17, 97% on room air, CBC with WC 8.7, hemoglobin 13.1, platelets 300 with increased immature granulocytes, unremarkable coags, BMP with chloride 108, BUN/creatinine 21/1.08, glucose 113, calcium 8.4, magnesium 2.2, TSH 0.40, troponin 63338, chest x-ray with no acute cardiopulmonary findings, rapid SARS COVID and influenza antigens negative, EKG with SR with q wave aVL and I but no marked with repeat EKG with SB with mild increased T wave inversion III, CTPA obtained and read as unremarkable. In the ED patient ministered normal saline 1 L bolus as well as sublingual nitroglycerin. ED discussed case with Dr. Billingsley and requested heparin drip with planned ECHO and cardiac catheterization evaluation. [facility] Medical History (Updated 07/17/22 @ 03:[address] Janiya Lee MD) Chewing tobacco use History of viral myocarditis Hypothyroidism Migraines Obesity Thyroid cancer Home Medications cholecalciferol (vitamin D3) 1,250 mcg (50,000 unit) capsule 5,000 unit PO DAILY 07/17/22 [History Last Taken Unknown] levothyroxine 150 mcg tablet 150 mcg PO DAILY 07/17/22 [History Last Taken Unknown] levothyroxine 200 mcg tablet 200 mcg PO DAILY 07/17/22 [History Last Taken Unknown] Allergy/AdvReac Type Severity Reaction Status Date / Time No Known Allergies Allergy Verified 09/21/20 21:00 Family History (Updated 07/17/22 @ 03:[address] Janiya Lee MD) Father Diabetes Hypertension CAD (coronary artery disease) Myocardial infarction Mother Hypertension Uncle CAD (coronary artery disease) Myocardial infarction Hypertension Surgical History (Updated 07/17/22 @ 02:[address] Janiya Lee MD) H/O vasectomy History of appendectomy History of arthroplasty of right knee History of thyroidectomy Social History (Updated 07/17/22 @ 03:[address] Janiya Lee MD) household members: spouse Smoking Status: Never smoker Smokeless tobacco user: chewing tobacco and other quit status: considering quitting alcohol intake: never substance use type: does not use ROS ROS Narrative Admission Review of Systems: CONSTITUTIONAL: No weight loss, fever, chills, + weakness or fatigue. HEENT: Eyes: No visual loss, blurred vision, double vision or yellow sclerae. Ears, Nose, Throat: No hearing loss, sneezing, congestion, runny nose or sore throat. SKIN: No rash or itching, lesions, wounds. CARDIOVASCULAR: + chest pain, chest pressure or chest discomfort, No palpitations, edema, orthopnea, syncopal events. RESPIRATORY: No shortness of breath, cough or sputum, wheezing, hemoptysis. GASTROINTESTINAL: No anorexia, nausea, vomiting or diarrhea, abdominal pain, melena, BRBPR. GENITOURINARY: No dysuria, frequency, urgency or retention. NEUROLOGICAL: No headache, dizziness, syncope, paralysis, ataxia, numbness or tingling in the extremities, focal weakness, change in bowel or bladder control, seizure. MUSCULOSKELETAL: + muscle, back pain, joint pain or stiffness. HEMATOLOGIC: No anemia, bleeding or bruising. LYMPHATICS: No enlarged nodes. No history of splenectomy. PSYCHIATRIC: No history of depression or anxiety. ENDOCRINOLOGIC: No reports of sweating, cold or heat intolerance. No polyuria or polydipsia. ALLERGIES: No history of asthma, hives, eczema or rhinitis. Vital Signs Vital Signs Vital Signs: 07/16/22 22:57 07/17/22 00:52 07/17/22 01:46 Temperature 98.2 F Temperature Source Temporal Pulse Rate 75 64 61 Respiratory Rate 17 Blood Pressure 164/100 H 181/108 H 155/105 H Blood Pressure Mean 121 132 Pulse Ox 97 97 Oxygen Delivery Method Room Air Room Air 07/17/22 01:47 07/17/22 01:51 Temperature Temperature Source Pulse Rate 61 69 Respiratory Rate 18 Blood Pressure 155/105 H 143/92 H Blood Pressure Mean 121 Pulse Ox 98 Oxygen Delivery Method Room Air Weight Weight: 298 lb 11.622 oz Body Mass Index (BMI) 37.3 Physical Exam Narrative Physical Examination: General: Awake, alert, oriented x 3 and cooperative, seated upright in the ED bed, notes pain discomfort following morphine 2 out of 10 in severity Skin: Normal color, normal turgor, no icterus, no cyanosis. HEENT: AT/NC, EOMI, PERRLA, mildly dry MM, no carotid bruits or JVD noted. Lungs: CTA bilaterally, moderate effort, mild decrease BL bases, no rales, ronchi or wheezing. Heart: Mildly bradycardic with regular rhythm; no gallop, rub audible. Abdomen: Soft, obese, NTTP, ND, distant normal BS, no HSM. Extremities: No cyanosis, clubbing, or edema. Neurological: Patient awake, alert, oriented as noted, cognitive function intact; pupils equally reactive to light and accommodation, cranial nerves II- XII grossly normal, moving all 4 extremities, no focal deficits, strength mildly global decrease secondary to acute presentation Psychiatric: Affect appears fatigued otherwise normal, no acute evidence of depr essive or anxiety feelings. Results Lab / Micro Data Result Diagrams: 07/16/22 23:32 07/16/22 23:32 Labs: Laboratory Results - last 24 hr 07/16/22 23:32: Sodium 139, Potassium 4.1, Chloride 108 H, Carbon Dioxide 27.0, Anion Gap 4 L, BUN 21 H, Creatinine 1.08, Estim Creat Clear Calc 102.15, Est GFR (MDRD) Af Amer 94, Est GFR (MDRD) Non-Af 78, BUN/Creatinine Ratio 19.4, Glucose 113 H, Calcium 8.4 L, Magnesium 2.2, Troponin I High Sens 22542 H* 07/16/22 23:32: WBC 8.7, RBC 4.65, Hgb 13.1, Hct 39.5 L, MCV 84.9, MCH 28.2, MCHC 33.2, RDW Std Deviation 39.9, RDW Coeff of Colleen 13.0, Plt Count 300, MPV 9.8, Immature Gran % (Auto) 1.300 H, Neut % (Auto) 55.4, Lymph % (Auto) 33.8, [place] % (Auto) 6.4, Eos % (Auto) 2.4, Baso % (Auto) 0.7, Absolute Neuts (auto) 4.8, Absolute Lymphs (auto) 2.95, Nucleated RBC % 0 07/16/22 23:32: PT 13.1, INR 1.0, APTT 26.8 07/16/22 23:32: TSH 0.40 Micro: Microbiology 07/17/22 00:16 Nasal Secretion SARS-CoV-2 & FLU Antigen (Rapid) - Final Radiology Impression Chest X-Ray 07/16/22 23:26 IMPRESSION: No radiographic evidence of acute cardiopulmonary disease. Electronically Signed: Jun Ulrich MD at 23:58 EST , Assessment & Plan Assessment/Plan (1) NSTEMI, initial episode of care: PLAN: Plan The patient is a 46 y/o M w/ PMHx: Hx Migraines, Hx Thyroid CA s/p resection, Obesity, Chew tobacco, Hx BPPV, Hx prior viral myocarditis who presents to the [facility] ED on 07/17/22 with history of unfortunately his horses escaping prompting him to significantly exert himself running through the snow and mud reporting that he did fall and caught himself with his arms at that time with no specific chest pain at that time however hours later he began to have onset of left chest discomfort at ~ 3 pm described as a tightness/pressure-like sensation rated 6 out of 10 in severity with no associated nausea, emesis, diaphoresis or dyspnea. #1. Chest Pain w/ Acute NSTEMI: EKG with SR with q wave aVL and I but no marked with repeat EKG with SB with mild increased T wave inversion III, CXR w/ no acute cardiopulmonary finding, initial troponin significantly increased 93893. Will admit to PCU, will continue cardiology consultation, maintain on a monitored bed, continue serial cardiac enzymes and EKGs, magnesium level already obtained for the ED and noted to be normal, will initiate heparin drip and continue, continue medical management with initiation of aspirin, given mild bradycardia noted upon ED evaluation on telemetry and blood pressure improvement following initial presentation we will add low-dose Coreg only which may need to be further reassessed or altered pending response, will defer PAMELA inhibitor consideration to cardiology, will add high-dose statin with AM FLP. Echocardiogram requested. Will continue cardiology consultation. Will maintain n.p.o. after midnight on judicious IV fluids for expected cardiac catheterization. ASA, NG, morphine. #2. Elevated BP without hypertensive diagnosis: Patient with elevated BPs noted prior however during acute presentations, do suspect likely underlying hypertensive history, given acute presentation #1 we will add Coreg as noted although low-dose given mild bradycardia noted on telemetry during evaluation, given BP improvement from initial presentation will defer PAMELA inhibitor consideration to cardiology discretion for medication changes or alteration, as needed IV hydralazine. #3. Chew Tobacco Abuse: Encouraged cessation, inpatient consultation per RT, NR if desired. #4. Hx Thryoid CA s/p resection with Hypothyroidism: TSH normal upon ED presentation, will continue home levothyroxine regimen. #5. Obesity: Weight loss and lifestyle changes encouraged. #6. History of migraines: Patient notes he does very rarely have migraines, not on a chronic medication, if necessary may add as needed agents. #7. DVT prophylaxis: SCDs, heparin drip. Admission Evaluation Time spent evaluating chart, patient history, patient evaluation, care planning and discussion with specialists: 75 minutes. Charges/Coding Visit Charges Inpatient E&M: 26997 Init Hosp L3
[2022-07-17] MEDS: 0.9% Normal Saline 1,000 ML 100 ML IV (05:19)
[2022-07-17] MEDS: Famotidine 20 MG Tablet PO ×2 (05:20→21:57)
[2022-07-17] MEDS: Carvedilol 6.25 MG Tablet PO ×2 (05:20→17:02)
[2022-07-17] MEDS: Heparin Injection (Vial) 5,000 UNIT/ML VIAL 4000 UNIT IV (05:29)
[2022-07-17] MEDS: HEPARIN/D5w 25,000 UNITS 25,000 UNITS/250 ML IV.SOLN. 10 UNITS CONT INF (05:38)
--- NOTE | 2022-07-17 05:55 | ECHOD_ITS ---
Reason For Study: NSTEMI Procedure This was a 2D Doppler, Color Flow transthoracic echocardiogram. The study was technically difficult. Exam performed portable in patient room. Left Ventricle Normal LV size. Left ventricular systolic function is normal. The estimated ejection fraction is 65 %. No evidence for diastolic dysfunction. No regional wall motion abnormalities noted. Right Ventricle Normal RV size. Normal systolic function. Atria Normal left atrium. Normal right atrium. No doppler evidence for ASD. Mitral Valve There is no mitral annular calcification. Normal mitral valve. Trivial mitral valve insufficiency. Tricuspid Valve Normal tricuspid valve. Trivial tricuspid valve insufficiency. Right ventricular systolic pressure estimated to be 29 mmHg. Aortic Valve Trisinus/trileaflet aortic valve. Normal aortic valve. Pulmonic Valve The pulmonic valve is not well visualized. Great Vessels Normal sized aortic root. Pericardium/Pleural No pericardial effusion. MMode/2D Measurements & Calculations LVIDd: 5.2 cm IVSd: 0.91 cm Ao root diam: 3.4 cm LVIDs: 3.6 cm LVPWd: 1.2 cm RVDd: 3.9 cm FS: 30.4 % LAV(MOD-bp): 67.7 ml LVAd ap4: 42.7 cm2 SV(MOD-sp4): 96.5 ml LAV(MOD-bp) Indexed: 26.2 ml/m2 LVLd ap4: 9.5 cm LAV(MOD-sp2): 69.6 ml EDV(MOD-sp4): 154.9 ml LAV(MOD-sp4): 65.8 ml EDV(sp4-el): 162.7 ml LVAs ap4: 22.7 cm2 LVLs ap4: 7.7 cm ESV(MOD-sp4): 58.5 ml ESV(sp4-el): 56.6 ml EF(MOD-sp4): 62.3 % EF(sp4-el): 65.2 % SV(sp4-el): 106.1 ml LA A4 area: 22.0 cm2 RA A4 area: 18.9 cm2 Time Measurements MV dec time: 0.26 sec Doppler Measurements & Calculations MV E max swapnil: 108.7 cm/sec Lat Peak E' Swapnil: 15.5 cm/sec Med Peak E' Swapnil: 11.0 cm/sec MV A max swapnil: 70.1 cm/sec E/E' lat: 7.0 E/E' med: 9.8 MV E/A: 1.6 Ao V2 max: 154.8 cm/sec LV V1 max: 111.5 cm/sec PA V2 max: 114.5 cm/sec Ao max P.6 mmHg LV V1 max P.0 mmHg TR max swapnil: 253.5 cm/sec TR max P.7 mmHg ECHO/Echo Complete Interpretation Summary The study was technically difficult. Left ventricular systolic function is normal. The estimated ejection fraction is 65 %. Trivial mitral valve insufficiency. Trivial tricuspid valve insufficiency. Right ventricular systolic pressure estimated to be 29 mmHg. No evidence for diastolic dysfunction. Ordering Physician: Janiya Lee Referring Physician: SONNY ZAMORA Performed By: Coleen Lenz RDCS
[2022-07-17 06:29] LABS: Absolute Lymphocyte Count 3.13 X10^3/uL (0.83-4.51); Absolute Neutrophil Count 4.5 X10^3/uL (2.0-7.7); Basophil# 0.06 X10^3/uL; Basophil% 0.7 % (0-1); Eosinophil# 0.22 X10^3/uL; Eosinophils% 2.6 % (0-5); Hematocrit 38.3 % (40-54); Hemoglobin 12.5 g/dL (13.0-16.5); Lymphocyte # 3.13 X10^3/ul (0.83-4.51); Lymphocyte % 36.8 % (19-41); Mean Corp Hgb Conc 32.6 g/dL (32-36); Mean Corpuscular Hgb 27.9 pg (27.0-32.0); Mean Corpuscular Volume 85.5 fL (80-94); Mean Platelet Vol. 10.3 fl (6.2-12.0); Monocyte# 0.53 X10^3/uL; Monocyte% 6.2 % (0-10); NRBC Flagged by Analyzer 0 % (0-5); Neutrophil # 4.54 X10^3/uL (2.7-7.7); Neutrophil % 53.3 % (47-70); Platelet Count 291 K/mm3 (150-450); RBC Distribution Width SD 40.4 fl (35.1-43.9); Red Blood Count 4.48 M/mm3 (4.6-6.2); White Blood Count 8.5 K/mm3 (4.4-11.0)
[2022-07-17 07:07] LABS: Troponin-I HS 21915 pg/mL (3.0-78.0)
[2022-07-17 07:18] LABS: AST(SGOT) 42 U/L (15-37); Alanine Aminotransfer ALT/SGPT 25 U/L (16-61); Albumin, Serum 3.5 g/dL (3.2-5.0); Alkaline Phosphatase 133 U/L (45-117); Anion Gap 7 (5-15); BUN 18 mg/dL (7-18); BUN/Creat Ratio 17.6 RATIO (10-20); Calcium,Total 8.1 mg/dL (8.5-10.1); Chloride 108 mmol/L (98-107); Cholesterol 192 mg/dL (200); Creatinine, Serum 1.02 mg/dL (0.70-1.30); EST Glomerular Filtration Rate 83 mL/min (>60); Est Glom Filt Rate - Afr Amer 101 mL/min (>60); Estimated Creatinine Clearance 105.21 ml/min; Globulin 3.6 g/dL (2.2-4.2); Glucose 102 mg/dL (74-106); High Density Lipoprotein 31 mg/dL; Potassium 4.1 mmol/L (3.5-5.1); Protein, Total 7.1 g/dL (6.4-8.2); Sodium Level 140 mmol/L (136-145); Triglycerides 243 mg/dL; Very Low Density Lipoprotein 49 mg/dL (5-40)
[2022-07-17] MEDS: Aspirin E.C. 81 MG Tablet PO (08:09)
--- NOTE | 2022-07-17 09:06 | PCM.CONS.C ---
Assessment & Plan Assessment/Plan (1) Unstable angina: PLAN: The patient presents with symptoms concerning for unstable angina pectoris. He has been evaluated noninvasively with cardiac enzymes and ECGs. His cardiac enzymes suggest findings compatible with a non-ST segment elevation NE. At the present time he is continuing medical therapy. This has included aspirin with 81 mg p.o. daily, carvedilol 6.25 mg p.o. twice daily, atorvastatin 80 mg p.o. daily, and IV heparin. He has been recommended for further noninvasive and invasive valuation. This includes a transthoracic echocardiogram to evaluate his left ventricular wall motion and systolic function and a diagnostic cardiac catheterization to evaluate his coronary anatomy. (2) NSTEMI, initial episode of care: PLAN: The patient has findings compatible with a non-ST segment elevation NE. His symptoms are concerning for underlying CAD with myocardial ischemia. He does not have symptoms or examination or ECG findings at this time compatible with underlying myopericarditis. He has not been found to have thromboembolic disease. He has had no acute neurologic event, acute renal insufficiency, or acute infectious related etiology to explain his symptoms and/or findings. At the present time he will continue medical therapy as noted above. He was recommended for noninvasive and invasive valuation as noted above. The cardiac catheterization procedure was reviewed with him with respect to risks and benefits. He agreed to this approach. (3) Hypothyroidism: PLAN: The patient has a history of underlying thyroid disease. He is on thyroid supplements. This will be continued. Addt'l Comments An attempt will be made to retrieve the patient's [facility] medical records for continuity of care. In the interim it is recommended he proceed with further evaluation and care as noted. The patient's case was discussed with the patient, with the [facility] emergency department staff, and with Dr. Dooley of the [facility] staff. Comment: Time spent in the patient's overall evaluation, examination, review of medical records, discussion with medical staff, documentation, etc.: 60 minutes. HPI Consult Data Date of Consult: 07/17/22 HPI Narrative HPI Narrative: YUDY MILLAN, is a 46 year old white male who presents for cardiovascular consultation based upon concerns of chest discomfort concerning for unstable angina pectoris and abnormal high-sensitivity troponin I levels compatible with a non-ST segment elevation NE superimposed upon a remote history of myocarditis treated at the [facility] [place] [facility]. The patient states that approximately 15 years ago he underwent evaluation at the [facility] for what was determined to be myocarditis. He underwent noninvasive and invasive cardiovascular studies. He states he was treated medically with aspirin. Since that time he does not believe he has had any cardiovascular concerns. He believes he has been otherwise relatively healthy with the exception of a history of hypothyroidism for which she is being treated until yesterday. He states he was out chasing his father's horses and developed chest discomfort/tightness/pressure across to his precordium. It did not radiate to his neck, shoulder, or back, as he states his myocarditis did. He felt more short of breath and dyspneic. There was no nausea, emesis, or diaphoresis. He has denied any history of orthopnea, PND, peripheral pitting edema. There is been no palpitations nor has there been any loss of consciousness. Based upon his concerns he presented to the [facility] emergency department for further evaluation. He underwent laboratory studies which demonstrated an elevated high-sensitivity troponin I level. His ECG demonstrated sinus rhythm with no acute ECG changes. He underwent a chest x-ray. His chest x-ray was reviewed. It did not appear to suggest any acute cardiopulmonary disease process. He also underwent a chest CTA which demonstrated no obvious great vessel or thromboembolic disease. He was subsequently placed in the PCU for further evaluation and care. He states since resting in the PCU on IV heparin he has felt better. His [facility] medical records are unavailable for review at this time. [facility] Medical History (Updated 07/17/22 @ 09:[address] Jair Billingsley MD) Chewing tobacco use History of viral myocarditis Hypothyroidism Migraines Obesity Thyroid cancer Home Medications cholecalciferol (vitamin D3) 1,250 mcg (50,000 unit) capsule 5,000 unit PO DAILY 07/17/22 [History Last Taken Unknown] levothyroxine 150 mcg tablet 150 mcg PO DAILY 07/17/22 [History Last Taken Unknown] levothyroxine 200 mcg tablet 200 mcg PO DAILY 07/17/22 [History Last Taken Unknown] Allergy/AdvReac Type Severity Reaction Status Date / Time No Known Allergies Allergy Verified 09/21/20 21:00 Family History (Updated 07/17/22 @ 03:[address] Janiya Lee MD) Father Diabetes Hypertension CAD (coronary artery disease) Myocardial infarction Mother Hypertension Uncle CAD (coronary artery disease) Myocardial infarction Hypertension Surgical History (Updated 07/17/22 @ 02:[address] Janiya Lee MD) H/O vasectomy History of appendectomy History of arthroplasty of right knee History of thyroidectomy Social History (Updated 07/17/22 @ 03:[address] Janiya Lee MD) household members: spouse Smoking Status: Never smoker Smokeless tobacco user: chewing tobacco and other quit status: considering quitting alcohol intake: never substance use type: does not use ROS Constitutional Constitutional: Reports as per HPI Eyes Eyes: Reports as per HPI ENT HEENT: Reports as per HPI Cardiovascular Cardiovascular: Reports chest pain and dyspnea Respiratory/Chest Respiratory/Chest: Reports dyspnea Gastrointestinal Gastrointestinal: Reports as per HPI Genitourinary Genitourinary: Reports as per HPI Musculoskeletal Musculoskeletal: Reports as per HPI Integumentary Integumentary: Reports as per HPI Neurologic Neurologic: Reports as per HPI Physical Exam Const alert, oriented x3, no apparent distress and healthy appearing Orientation / Consciousness: awake HEENT normocephalic, head/scalp atraumatic and hearing grossly normal bilaterally Eyes PERRL, EOMs intact bilaterally, conjunctivae normal and no scleral icterus Neck full ROM, supple and no JVD Carotids: normal carotid upstroke Resp normal respiratory effort and clear to auscultation bilaterally Cardio regular rate, regular rhythm, S1 normal heart sound and S2 normal heart sound GI normal to inspection, nondistended, normoactive bowel sounds Extremity normal to inspection and no pedal edema Skin no rashes or lesions noted Psych mental status grossly normal Risk Stratification Risk Stratification Applicable: Yes Age >/= 65: No >/= 3 CAD Risk Factors (HTN, HLD, DM, family hx of CAD, or current smoker): No Aspirin Use in the Past 7 Days: No Severe Angina (>/= episodes in 24 hours): Yes EKG ST Changes >/= 0.5mm: No Positive Cardiac Marker: Yes DI Risk Stratification Score: 2 DI % Risk: 8% Risk Procedure Criteria Type of Procedure Procedure Type: Elective Elective Risks - COVID COVID Risk Discussion: The surgeon/proceduralist and patient have discussed in detail the risk of exposure to and/or potential harm posed by the COVID-19 virus with having a surgery/procedure at this time versus the risk of delaying the surgery/procedure. It is not possible to know either the risk of delaying the surgery or procedure or chance of getting an infection with perfect accuracy, but a joint decision was made between the patient and the surgeon/proceduralist to proceed at this time with the scheduled surgery/procedure as indicated on the consent form. Objective Data Vital Signs: Vital Signs Temp Pulse Resp BP Pulse Ox O2 Del Method 98.0 F 63 20 H 168/104 H 96 Room Air 07/17/22 04:49 07/17/22 06:59 07/17/22 04:49 07/17/22 04:49 07/17/22 04:49 07/17/22 07:22 Oxygen Delivery Method Room Air Weight: 294 lb 1.546 oz Body Mass Index (BMI) 37.8 Intake & Output: Intake and Output for Last 24 Hours 07/15/22 07/16/22 07/17/22 23:59 23:59 23:59 Intake Total 1025.33 / 1025.33 Balance 1025.33 / 1025.33 Lab / Micro Data Result Diagrams: 07/17/22 05:49 07/17/22 05:49 Labs: Laboratory Results - last 24 hr 07/16/22 23:32: Sodium 139, Potassium 4.1, Chloride 108 H, Carbon Dioxide 27.0, Anion Gap 4 L, BUN 21 H, Creatinine 1.08, Estim Creat Clear Calc 102.15, Est GFR (MDRD) Af Amer 94, Est GFR (MDRD) Non-Af 78, BUN/Creatinine Ratio 19.4, Glucose 113 H, Calcium 8.4 L, Magnesium 2.2, Troponin I High Sens [id number] H* 07/16/22 23:32: WBC 8.7, RBC 4.65, Hgb 13.1, Hct 39.5 L, MCV 84.9, MCH 28.2, MCHC 33.2, RDW Std Deviation 39.9, RDW Coeff of Colleen 13.0, Plt Count 300, MPV 9.8, Immature Gran % (Auto) 1.300 H, Neut % (Auto) 55.4, Lymph % (Auto) 33.8, Bland % (Auto) 6.4, Eos % (Auto) 2.4, Baso % (Auto) 0.7, Absolute Neuts (auto) 4.8, Absolute Lymphs (auto) 2.95, Nucleated RBC % 0 07/16/22 23:32: PT 13.1, INR 1.0, APTT 26.8 07/16/22 23:32: TSH 0.40 07/17/22 01:39: Troponin I High Sens [id number] H* 07/17/22 05:49: WBC 8.5, RBC 4.48 L, Hgb 12.5 L, Hct 38.3 L, MCV 85.5, MCH 27.9, MCHC 32.6, RDW Std Deviation 40.4, RDW Coeff of Colleen 13.0, Plt Count 291, MPV 10.3, Immature Gran % (Auto) 0.400, Neut % (Auto) 53.3, Lymph % (Auto) 36.8, Bland % (Auto) 6.2, Eos % (Auto) 2.6, Baso % (Auto) 0.7, Absolute Neuts (auto) 4.5, Absolute Lymphs (auto) 3.13, Nucleated RBC % 0 07/17/22 05:49: Sodium 140, Potassium 4.1, Chloride 108 H, Carbon Dioxide 25.0, Anion Gap 7, BUN 18, Creatinine 1.02, Estim Creat Clear Calc 105.21, Est GFR (MDRD) Af Amer 101, Est GFR (MDRD) Non-Af 83, BUN/Creatinine Ratio 17.6, Glucose 102, Calcium 8.1 L, Total Bilirubin 0.40, AST 42 H, ALT 25, Alkaline Phosphatase 133 H, Total Protein 7.1, Albumin 3.5, Globulin 3.6, Albumin/Globulin Ratio 1.0, Triglycerides 243 H, Cholesterol 192, LDL Cholesterol 112, VLDL Cholesterol 49 H, HDL Cholesterol 31 L 07/17/22 05:49: Troponin I High Sens [id number] H* Micro: Microbiology 07/17/22 00:16 Nasal Secretion SARS-CoV-2 & FLU Antigen (Rapid) - Final Cardiology Labs/Tests 07/16/22 23:32: Sodium 139, Potassium 4.1, Chloride 108 H, Carbon Dioxide 27.0, Anion Gap 4 L, BUN 21 H, Creatinine 1.08, Est GFR (MDRD) Af Amer 94, Est GFR (MDRD) Non-Af 78, BUN/Creatinine Ratio 19.4, Glucose 113 H, Calcium 8.4 L, Magnesium 2.2 07/16/22 23:32: WBC 8.7, RBC 4.65, Hgb 13.1, Hct 39.5 L, MCV 84.9, MCH 28.2, MCHC 33.2, Plt Count 300, MPV 9.8, Immature Gran % (Auto) 1.300 H, Neut % (Auto) 55.4, Lymph % (Auto) 33.8, Bland % (Auto) 6.4, Eos % (Auto) 2.4, Baso % (Auto) 0.7, Absolute Neuts (auto) 4.8, Nucleated RBC % 0 07/16/22 23:32: PT 13.1, INR 1.0, APTT 26.8 07/17/22 05:49: WBC 8.5, RBC 4.48 L, Hgb 12.5 L, Hct 38.3 L, MCV 85.5, MCH 27.9, MCHC 32.6, Plt Count 291, MPV 10.3, Immature Gran % (Auto) 0.400, Neut % (Auto) 53.3, Lymph % (Auto) 36.8, Bland % (Auto) 6.2, Eos % (Auto) 2.6, Baso % (Auto) 0.7, Absolute Neuts (auto) 4.5, Nucleated RBC % 0 07/17/22 05:49: Sodium 140, Potassium 4.1, Chloride 108 H, Carbon Dioxide 25.0, Anion Gap 7, BUN 18, Creatinine 1.02, Est GFR (MDRD) Af Amer 101, Est GFR (MDRD) Non-Af 83, BUN/Creatinine Ratio 17.6, Glucose 102, Calcium 8.1 L, Total Bilirubin 0.40, Triglycerides 243 H, Cholesterol 192, LDL Cholesterol 112, VLDL Cholesterol 49 H, HDL Cholesterol 31 L Rhythm: Sinus rhythm EKG: Sinus rhythm; repeat ECG with sinus bradycardia; repeat ECG with sinus bradycardia with PVC-no acute ECG changes Radiography Diagnostic Testing: Radiology Impression Chest X-Ray 07/16/22 23:26 IMPRESSION: No radiographic evidence of acute cardiopulmonary disease. Electronically Signed: Jun Ulrich MD at 23:58 EST , Chest CTA 07/17/22 00:01 IMPRESSION: No CTA demonstrated pulmonary embolism or arterial dissection. Electronically Signed: Christy Taylor MD at 1:36 EST Reading Location ID and State: [facility] / [place] , Service support ,
--- NOTE | 2022-07-17 10:01 | CASEMGMT ---
Tertiary facilities in-network with patient's insurance: [facility], Anat Barrios, , [facility], [facility], Lacy [facility], ALIA, Juan.
[2022-07-17] MEDS: 0.9% Normal Saline 1,000 ML 75 ML IV (10:24)
--- NOTE | 2022-07-17 11:05 | CASEMGMT ---
RN?CM?AUTO VINYL TOP INSTALLER?CM?placed call to pt's room for initial transition planning/care coordination?assessment.?RN?CM?introduced self and role at [facility].? Pt voices understanding and consents to?assessment?at this time.? Pt is A/O at this time and answers all questions appropriately.?? Care providers, pharmacy, and demographics verified/updated at this time.? PCP:?Dr Goodman Specialists:?[facility]--pt does not remember name of physician Preferred Pharmacy:?[facility] Retail Insurance:?[place] Prescription Benefit:??Ye Living Will/HPOA:??Pt does not currently have LW/HCPOA. Made aware he can complete w/SW, if he wishes to. LNOK:?, Joanne Living Arrangements:?Lives w/ in one-story home w/3 steps to enter. Independent. Works full-time Transportation:?Pt states drives self and states no transportation concerns at this time.?? also drives. DME: ? Denies using any DME and denies needs.?? HHC/SNF:?No hx of either. No needs identified. Pt wishes to return home and states has no concerns with going home at time of discharge.??CM?to follow for any discharge planning/needs.? Pt voices no concerns/needs at this time.? Advised pt to ask for?CM?if any questions/concerns/needs arise.? Voices understanding.? PLAN:?Home? Leigha BSN?RN?CM
[2022-07-17 12:07] LABS: Partial Thromboplast Time 26.9 Seconds (24.1-36.2)
--- NOTE | 2022-07-17 16:19 | PCM.HOSP.N ---
Hospitalist Note Patient is a 46-year-old white male who presented to emergency department early this morning with chest pain on the left side that began approximately 3 AM. He reported it was tightness/pressure sensation and rated at 6 out of 10 in severity with no associated nausea, vomiting, diaphoresis, or dyspnea. His father did have a heart attack at the age of 49 and this prompted his ED evaluation. He does have a remote history of viral myocarditis approximately 15 years ago. Cardiac catheterization was done and showed no obstructive disease. Echocardiogram EF is 65% with right ventricular systolic pressure of 29 mmHg and no clot noted. He had markedly elevated cardiac enzymes with his initial being greater than 13,000 and repeat was almost 17,000, and his third troponin was almost 22,000. I discussed this case with cardiology and the etiology is unclear at this point. I did order coxsackievirus and a respiratory viral panel. Patient is completely asymptomatic at this time. Cardiology is recommending treating him like an NSTEMI starting an aspirin, beta-tamiko, statin, and PAMELA inhibitor with repeat troponin in the morning and EKG as well as outpatient follow-up after discharge. If the patient is stable tomorrow we will likely be able to discharge him home. Patient initially wanted to leave today however we discussed the overall plan and he is agreeable to stay the night.
[2022-07-17 17:01] LABS: Troponin-I HS 18523 pg/mL (3.0-78.0)
[2022-07-17] MEDS: Lisinopril 2.5 MG Tablet PO (17:18)
[2022-07-17] MEDS: Atorvastatin Calcium 80 MG Tablet PO (21:57)
[2022-07-18 00:44] VITALS: BP 135/79; PULSE 70; RESP 18; TEMP 36.4; O2SAT 95
--- NOTE | 2022-07-18 03:51 | CPS ---
Missed incentive spirometer round this evening due to increased work load and emergency in PCU.
[2022-07-18 04:46] LABS: Hematocrit 37.6 % (40-54); Hemoglobin 12.4 g/dL (13.0-16.5); Mean Corpuscular Hgb 28.4 pg (27.0-32.0); Mean Corpuscular Volume 86.2 fL (80-94); Mean Platelet Vol. 9.9 fl (6.2-12.0); Platelet Count 283 K/mm3 (150-450); RBC Distribution Width CV 13.1 % (11.6-14.6); Red Blood Count 4.36 M/mm3 (4.6-6.2); White Blood Count 7.9 K/mm3 (4.4-11.0)
[2022-07-18 04:57] LABS: International Normalized Ratio 1.1; Prothrombin Time (Protime)PT. 13.7 SECONDS (11.7-14.9)
[2022-07-18 04:58] LABS: Partial Thromboplast Time 28.8 Seconds (24.1-36.2)
[2022-07-18 05:04] VITALS: BP 126/67; PULSE 65; RESP 20; TEMP 36.3; O2SAT 97
[2022-07-18] MEDS: Levothyroxine 100 MCG Tablet 200 MCG PO (05:05)
[2022-07-18 05:46] LABS: Anion Gap 8 (5-15); BUN 19 mg/dL (7-18); BUN/Creat Ratio 16.8 RATIO (10-20); Calcium,Total 7.8 mg/dL (8.5-10.1); Chloride 105 mmol/L (98-107); Creatinine, Serum 1.13 mg/dL (0.70-1.30); EST Glomerular Filtration Rate 74 mL/min (>60); Est Glom Filt Rate - Afr Amer 90 mL/min (>60); Estimated Creatinine Clearance 94.97 ml/min; Glucose 102 mg/dL (74-106); Potassium 4.1 mmol/L (3.5-5.1); Sodium Level 138 mmol/L (136-145); Troponin-I HS 8714 pg/mL (3.0-78.0)
[2022-07-18 08:00] VITALS: O2SAT 96
[2022-07-18 09:35] VITALS: BP 142/90; PULSE 60; RESP 18; TEMP 37.1; O2SAT 96
[2022-07-18] MEDS: Carvedilol 6.25 MG Tablet PO (09:40)
[2022-07-18] MEDS: Famotidine 20 MG Tablet PO (09:40)
[2022-07-18] MEDS: Aspirin E.C. 81 MG Tablet PO (09:40)
[2022-07-18] MEDS: Lisinopril 2.5 MG Tablet PO (09:41)
--- NOTE | 2022-07-18 09:48 | PCM.DC.SUM ---
Providers Date of Admission: 07/17/22 Primary Care Physician: Dr. Stef Zamora MD Consultations 07/17/22 04:43 Consult: Cardiology Routine Consulting Provider: Jair Billingsley Reason for Consult: NSTEMI EMERGENT Consult: No MD Notified: Yes Date Notified: 07/17/22 Time Notified: 02:08 Method of Notification: ED Physician Initiated Reason For Visit: NSTEMI Diagnosis Discharge Diagnosis (1) Unstable angina: Status: Acute Code(s): I20.0 - Unstable angina (2) NSTEMI, initial episode of care: Status: Acute Code(s): I21.4 - Non-ST elevation (NSTEMI) myocardial infarction (3) Hypothyroidism: Status: Acute Code(s): E03.9 - Hypothyroidism, unspecified Medications at Discharge Home Medications cholecalciferol (vitamin D3) 1,250 mcg (50,000 unit) capsule 5,000 unit PO DAILY 07/17/22 levothyroxine 150 mcg tablet 150 mcg PO DAILY 07/17/22 levothyroxine 200 mcg tablet 200 mcg PO DAILY 07/17/22 aspirin 81 mg tablet,delayed release 81 mg PO BREAKFAST #0 tabs 07/18/22 atorvastatin 80 mg tablet 80 mg PO QHS #30 tabs 07/18/22 carvedilol 6.25 mg tablet 6.25 mg PO BIDCM #60 tabs 07/18/22 lisinopril 2.5 mg tablet 2.5 mg PO DAILY #30 tabs 07/18/22 Weight / BMI Weight Weight: 137.7 kg Body Mass Index (BMI) 37.8 ABG / Lab / Microbiology Data Result Diagrams: 07/18/22 04:12 07/18/22 04:12 Laboratory: Laboratory Results - last 24 hr 07/17/22 11:40: APTT 26.9 07/17/22 15:55: Troponin I High Sens [id number] H* 07/18/22 04:12: WBC 7.9, RBC 4.36 L, Hgb 12.4 L, Hct 37.6 L, MCV 86.2, MCH 28.4, MCHC 33.0, RDW Std Deviation 41.0, RDW Coeff of Colleen 13.1, Plt Count 283, MPV 9.9 07/18/22 04:12: PT 13.7, INR 1.1, APTT 28.8 07/18/22 04:12: Sodium 138, Potassium 4.1, Chloride 105, Carbon Dioxide 25.0, Anion Gap 8, BUN 19 H, Creatinine 1.13, Estim Creat Clear Calc 94.97, Est GFR (MDRD) Af Amer 90, Est GFR (MDRD) Non-Af 74, BUN/Creatinine Ratio 16.8, Glucose 102, Calcium 7.8 L, Troponin I High Sens [id number] H* Microbiology: Microbiology 07/17/22 15:55 Mucosa - Nasopharyngeal Respiratory Panel (PCR) - Final 07/17/22 00:16 Nasal Secretion SARS-CoV-2 & FLU Antigen (Rapid) - Final Radiography Diagnostic Testing: Radiology Impression Echocardiogram 07/17/22 05:55 Interpretation Summary The study was technically difficult. Left ventricular systolic function is normal. The estimated ejection fraction is 65 %. Trivial mitral valve insufficiency. Trivial tricuspid valve insufficiency. Right ventricular systolic pressure estimated to be 29 mmHg. No evidence for diastolic dysfunction. Ordering Physician: Janiya Lee Referring Physician: STEF ZAMORA Performed By: Coleen Lenz LEONARD D/C Instructions Discharge Diet: Low fat / Low cholesterol Discharge Activity: Return to Normal Activity Return to work on: 07/19/22 Meaningful Use Info Meaningful Use Diagnoses (Choose all that apply): AMI AMI/Post PCI/Angioplasty Aspirin given w/in 24hrs of arrival?: Yes ASA at discharge?: Yes Statins at discharge?: Yes Dean/ARB at discharge?: Yes Beta Ronen at discharge?: Yes Done w/ Acute MD measure.: Yes Discharge Plan Admission Admit Date/Time: 07/17/22 02:08 Primary Reason for Your Visit: Chest Pain Attending Provider: Cristy Dooley Primary Care Provider: Stef Zamora Consulting Providers: Jair Billingsley ; Janiya Lee Discharge Orders/Prescriptions Prescriptions: New aspirin 81 mg Tablet,Delayed Release (Dr/Ec) 81 mg PO BREAKFAST Qty: 0 0RF atorvastatin 80 mg Tablet 80 mg PO QHS Qty: 30 1RF carvedilol 6.25 mg Tablet 6.25 mg PO BIDCM Qty: 60 1RF lisinopril 2.5 mg Tablet 2.5 mg PO DAILY Qty: 30 1RF Continued levothyroxine 150 mcg tablet 150 mcg PO DAILY Label Comments: TAKE 1 TABLET BY MOUTH ONCE DAILY. PLEASE TAKE FRIDAY AND FRIDAY Rx Instructions: FRIDAY AND FRIDAY levothyroxine 200 mcg tablet 200 mcg PO DAILY Label Comments: TAKE 1 TABLET BY MOUTH ONCE DAILY. PLEASE TAKE 1 TABLET FRIDAY- FRIDAY Rx Instructions: - cholecalciferol (vitamin D3) 1,250 mcg (50,000 unit) capsule 5,000 unit PO DAILY Label Comments: TAKE 1 CAPSULE BY MOUTH ONE TIME A WEEK. Referrals / Follow Up: Jair Billingsley MD [Med Staff - Active Staff] - Within 1 Month Stef Zamora MD [Primary Care Provider] - Within 1 Month Disposition Disposition (needs filled in before D/C Order can be placed): Home, Self Care Charges/Coding Visit Charges Inpatient E&M: 71923 Disch Hosp
[2022-07-18 09:58] VITALS: BP 142/90; PULSE 60; RESP 18; TEMP 37.1; O2SAT 96
--- NOTE | 2022-07-18 10:18 | PN.CARD_ITS ---
Subjective Subjective The patient is awake and alert. He states he feels well overall. He denies any ongoing chest discomfort or difficulty breathing at this time. Objective Data Vital Signs: Vital Signs Temp Pulse Resp BP Pulse Ox O2 Del Method 98.7 F 60 18 142/90 H 96 Room Air 07/18/22 09:58 07/18/22 09:58 07/18/22 09:58 07/18/22 09:58 07/18/22 09:58 07/18/22 09:58 Oxygen Delivery Method Room Air Weight: 303 lb 9.224 oz Body Mass Index (BMI) 37.8 Intake & Output: Intake and Output for Last 24 Hours 07/16/22 07/17/22 07/18/22 23:59 23:59 23:59 Intake Total 2595.75 / 2835.75 390 / 390 Balance 2595.75 / 2835.75 390 / 390 Lab / Micro Data Result Diagrams: 07/18/22 04:12 07/18/22 04:12 Labs: Laboratory Results - last 24 hr 07/17/22 11:40: APTT 26.9 07/17/22 15:55: Troponin I High Sens 15908 H* 07/18/22 04:12: WBC 7.9, RBC 4.36 L, Hgb 12.4 L, Hct 37.6 L, MCV 86.2, MCH 28.4, MCHC 33.0, RDW Std Deviation 41.0, RDW Coeff of Colleen 13.1, Plt Count 283, MPV 9.9 07/18/22 04:12: PT 13.7, INR 1.1, APTT 28.8 07/18/22 04:12: Sodium 138, Potassium 4.1, Chloride 105, Carbon Dioxide 25.0, Anion Gap 8, BUN 19 H, Creatinine 1.13, Estim Creat Clear Calc 94.97, Est GFR (MDRD) Af Amer 90, Est GFR (MDRD) Non-Af 74, BUN/Creatinine Ratio 16.8, Glucose 102, Calcium 7.8 L, Troponin I High Sens 8714 H* Micro: Microbiology 07/17/22 15:55 Mucosa - Nasopharyngeal Respiratory Panel (PCR) - Final Cardiology Labs/Tests 07/17/22 11:40: APTT 26.9 07/18/22 04:12: WBC 7.9, RBC 4.36 L, Hgb 12.4 L, Hct 37.6 L, MCV 86.2, MCH 28.4, MCHC 33.0, Plt Count 283, MPV 9.9 07/18/22 04:12: PT 13.7, INR 1.1, APTT 28.8 07/18/22 04:12: Sodium 138, Potassium 4.1, Chloride 105, Carbon Dioxide 25.0, Anion Gap 8, BUN 19 H, Creatinine 1.13, Est GFR (MDRD) Af Amer 90, Est GFR (MDRD) Non-Af 74, BUN/Creatinine Ratio 16.8, Glucose 102, Calcium 7.8 L Rhythm: Sinus EKG: Sinus rhythm; no acute ECG changes ECHO: As noted below Radiography Diagnostic Testing: Radiology Impression Echocardiogram 07/17/22 05:55 Interpretation Summary The study was technically difficult. Left ventricular systolic function is normal. The estimated ejection fraction is 65 %. Trivial mitral valve insufficiency. Trivial tricuspid valve insufficiency. Right ventricular systolic pressure estimated to be 29 mmHg. No evidence for diastolic dysfunction. Ordering Physician: Janiya Lee Referring Physician: SONNY ZAMORA Performed By: Coleen Lenz RDCS Physical Exam Const alert, oriented x3, no apparent distress and healthy appearing Orientation / Consciousness: awake HEENT normocephalic, head/scalp atraumatic and hearing grossly normal bilaterally Eyes PERRL, EOMs intact bilaterally, conjunctivae normal and no scleral icterus Neck full ROM, supple and no JVD Carotids: normal carotid upstroke Resp normal respiratory effort and clear to auscultation bilaterally Cardio regular rate, regular rhythm, S1 normal heart sound and S2 normal heart sound GI normal to inspection, nondistended, normoactive bowel sounds Extremity normal to inspection and no pedal edema Extremity Narrative: Right radial artery: Pulses 2+/4+: No bruit: No hematoma Skin no rashes or lesions noted Psych mental status grossly normal Assessment & Plan Assessment/Plan (1) NSTEMI, initial episode of care: PLAN: The patient has findings compatible with a non-ST segment elevation KS. His symptoms are concerning for underlying CAD with myocardial ischemia. However, he underwent evaluation with diagnostic cardiac catheterization. His coronary arteries appear to be angiographically normal. His overall LV free wall motion and systolic function appear to be preserved. He does not have symptoms or examination or ECG findings at this time compatible with underlying myopericarditis. He has not been found to have thromboembolic disease. He has had no acute neurologic event, acute renal insufficiency, or acute infectious related etiology to explain his symptoms and/or findings. He was noted to be hypertensive. This superimposed upon his above and beyond physical activity that he was participating in at the time of his symptoms may be the etiology for his enzyme change. At the present time he will continue medical therapy as noted above. This will include agents such as aspirin, beta-blockers, afterload reducing agents, and lipid-lowering therapy. (2) HTN (hypertension): PLAN: The patient does admit his blood pressure has been elevated at times. Based upon review of his records his pressures have been elevated. Again this may be an etiology for his objective findings/changes. At the moment he will initiate medical therapy as noted above. He will need continued follow-up of his blood pressures. (3) Hypothyroidism: PLAN: The patient has a history of underlying thyroid disease. He is on thyroid supplements. This will be continued. Addt'l Comments Outside medical records from [facility] were received and reviewed. It appears on 11-29-2006 the patient underwent diagnostic cardiac catheterization. At that time his coronary anatomy was listed as normal and his LVEF was 65%. It also appears he underwent an echocardiogram on 02-10-2007. At that time his LV was listed as normal with an LVEF of 57% with mild mitral enlargement and trivial MR. The patient's case was discussed and reviewed with the patient as well as with Dr. Dooley from the [facility] staff. At the present time he will continue medical therapy and have future outpatient follow-up. Comments: Time spent in the patient's overall evaluation, examination, review of outside medical records, documentation, discussion with medical staff, etc.: 40 minutes. Procedure Criteria Type of Procedure Procedure Type: Elective Elective Risks - COVID COVID Risk Discussion: The surgeon/proceduralist and patient have discussed in detail the risk of exposure to and/or potential harm posed by the COVID-19 virus with having a surgery/procedure at this time versus the risk of delaying the surgery/procedure. It is not possible to know either the risk of delaying the surgery or procedure or chance of getting an infection with perfect accuracy, but a joint decision was made between the patient and the surgeon/proceduralist to proceed at this time with the scheduled surgery/procedure as indicated on the consent form.
--- NOTE | 2022-07-18 12:11 | DS.PCM_ITS ---
Providers Date of Admission: 07/17/22 Date of Discharge: 07/18/22 Primary Care Physician: Dr. Stef Zamora MD Consultations 07/17/22 04:43 Consult: Cardiology Routine Consulting Provider: Jair Billingsley Reason for Consult: NSTEMI EMERGENT Consult: No MD Notified: Yes Date Notified: 07/17/22 Time Notified: 02:08 Method of Notification: ED Physician Initiated Reason For Visit: NSTEMI Diagnosis Discharge Diagnosis (1) NSTEMI, initial episode of care: Status: Acute Code(s): I21.4 - Non-ST elevation (NSTEMI) myocardial infarction (2) HTN (hypertension): Status: Chronic Code(s): I10 - Essential (primary) hypertension (3) Hypothyroidism: Status: Acute Code(s): E03.9 - Hypothyroidism, unspecified Medications at Discharge Home Medications cholecalciferol (vitamin D3) 1,250 mcg (50,000 unit) capsule 5,000 unit PO DAILY 07/17/22 levothyroxine 150 mcg tablet 150 mcg PO DAILY 07/17/22 levothyroxine 200 mcg tablet 200 mcg PO DAILY 07/17/22 aspirin 81 mg tablet,delayed release 81 mg PO BREAKFAST #0 tabs 07/18/22 atorvastatin 80 mg tablet 80 mg PO QHS #30 tabs 07/18/22 carvedilol 6.25 mg tablet 6.25 mg PO BIDCM #60 tabs 07/18/22 lisinopril 2.5 mg tablet 2.5 mg PO DAILY #30 tabs 07/18/22 Hospital Course Operations None Procedures 2-D Echocardiogram, Cardiac catheterization and EKG Summary of Care Provided Minutes Spent on Discharge: 25 Hospital Course: Mr. Connolly is a 46-year-old white male who presented to the emergency department early in the morning on 07/17/2021 with a chief complaint of left-sided chest pain that began approximately 3 AM. He reported it was tightness/pressure sen sation and rated at 6 out of 10 in severity. He denied any associated nausea, vomiting, diaphoresis, or dyspnea. He reported his father did have a heart attack at the age of 49 and this is what prompted his ED evaluation. He had a remote history of viral myocarditis approximately 15 years ago and a cardiac catheterization at that time was performed and showed no coronary artery disease. His cardiac enzymes were obtained in the emergency department with his initial being greater than 13,000. He was admitted to the PCU and cardiology was consulted. Cardiac enzymes were cycled and peaked at about 22,000. His catheterization was negative for any coronary disease. A CTA of his chest was n egative for any PE. An echocardiogram showed an EF of 65% with trivial mitral valve and tricuspid valve insufficiency as well as right ventricular systolic pressure of 29 mmHg. He had no evidence of diastolic dysfunction. We did obtain repeat troponins and EKG. His troponin did trend down and it was approximately 8000 at the time of discharge. His repeat EKG was unremarkable for any acute findings. I did discuss the case with cardiology and they wanted to continue to pursue treatment as an NSTEMI with aspirin, beta-ronen, a statin and lisinopril. There is some concern that this could potentially be related to hypertension. We did obtain viral studies to rule out myocarditis and coxsackie a and B were pending at the time of discharge. His respiratory viral panel was unremarkable. He is to follow-up with his primary care physician within the next month and with Dr. Billingsley. He is to follow-up with cardiology within the next 4 weeks. He was discharged home in stable condition with prescriptions for his new medications. Discharge diagnoses: NSTEMI with normal coronaries Severe troponin elevation Hypertension Hypothyroidism Physical Exam Const alert, oriented x3, no apparent distress and well nourished Constitutional Narrative: Obese, middle-aged, white male sitting up in bed, appears ready to go home, nontoxic, no complaints, nursing and General Appearance: cooperative, comfortable, well kempt and well developed Orientation / Consciousness: awake, oriented to person, oriented to place and oriented to time Exam Limitations: no limitations Nutritional Appearance: obese HEENT normocephalic, head/scalp atraumatic, hearing grossly normal bilaterally and moist oral mucous membranes Resp normal respiratory effort, no retractions, no use of accessory muscles and clear to auscultation bilaterally Auscultation: Negative for crackles, rhonchi or wheezes Cardio regular rate, regular rhythm, S1 normal heart sound, S2 normal heart sound, no murmurs, no rub, no gallops and no clicks GI normal to inspection, nondistended, normoactive bowel sounds, soft to palpation and non-tender Neuro oriented x3, CN's II-XII intact bilaterally, moves all extremities and no focal motor deficits Speech: speech normal Psych affect normal Weight / BMI Weight Weight: 137.7 kg Body Mass Index (BMI) 37.8 ABG / Lab / Microbiology Data Result Diagrams: 07/18/22 04:12 07/18/22 04:12 Laboratory: Laboratory Results - last 24 hr 07/17/22 15:55: Troponin I High Sens 32608 H* 07/18/22 04:12: WBC 7.9, RBC 4.36 L, Hgb 12.4 L, Hct 37.6 L, MCV 86.2, MCH 28.4, MCHC 33.0, RDW Std Deviation 41.0, RDW Coeff of Colleen 13.1, Plt Count 283, MPV 9.9 07/18/22 04:12: PT 13.7, INR 1.1, APTT 28.8 07/18/22 04:12: Sodium 138, Potassium 4.1, Chloride 105, Carbon Dioxide 25.0, Anion Gap 8, BUN 19 H, Creatinine 1.13, Estim Creat Clear Calc 94.97, Est GFR (MDRD) Af Amer 90, Est GFR (MDRD) Non-Af 74, BUN/Creatinine Ratio 16.8, Glucose 102, Calcium 7.8 L, Troponin I High Sens 8714 H* Microbiology: Microbiology 07/17/22 15:55 Mucosa - Nasopharyngeal Respiratory Panel (PCR) - Final 07/17/22 00:16 Nasal Secretion SARS-CoV-2 & FLU Antigen (Rapid) - Final Radiography Diagnostic Testing: Radiology Impression Echocardiogram 07/17/22 05:55 Interpretation Summary The study was technically difficult. Left ventricular systolic function is normal. The estimated ejection fraction is 65 %. Trivial mitral valve insufficiency. Trivial tricuspid valve insufficiency. Right ventricular systolic pressure estimated to be 29 mmHg. No evidence for diastolic dysfunction. Ordering Physician: Janiya Lee Referring Physician: STEF ZAMORA Performed By: Coleen Lenz RDCS D/C Instructions Discharge Diet: Low fat / Low cholesterol Return to work on: 07/19/22 Meaningful Use Info Meaningful Use Diagnoses (Choose all that apply): AMI AMI/Post PCI/Angioplasty Aspirin given w/in 24hrs of arrival?: Yes ASA at discharge?: Yes Antiplatelet Therapy at Discharge:: No Reason Antiplatelet Therapy not ordered:: not indicated Statins at discharge?: Yes Dean/ARB at discharge?: Yes Beta Ronen at discharge?: Yes Done w/ Acute CT measure.: Yes Documented LVEF (%): 65 Discharge Plan Admission Admit Date/Time: 07/17/22 02:08 Primary Reason for Your Visit: Chest Pain Attending Provider: Cristy Dooley Primary Care Provider: Stef Zamora Consulting Providers: Jair Billingsley ; Janiya Lee Discharge Orders/Prescriptions Prescriptions: New aspirin 81 mg Tablet,Delayed Release (Dr/Ec) 81 mg PO BREAKFAST Qty: 0 0RF atorvastatin 80 mg Tablet 80 mg PO QHS Qty: 30 1RF carvedilol 6.25 mg Tablet 6.25 mg PO BIDCM Qty: 60 1RF lisinopril 2.5 mg Tablet 2.5 mg PO DAILY Qty: 30 1RF Continued levothyroxine 150 mcg tablet 150 mcg PO DAILY Label Comments: TAKE 1 TABLET BY MOUTH ONCE DAILY. PLEASE TAKE FRIDAY AND FRIDAY Rx Instructions: FRIDAY AND FRIDAY levothyroxine 200 mcg tablet 200 mcg PO DAILY Label Comments: TAKE 1 TABLET BY MOUTH ONCE DAILY. PLEASE TAKE 1 TABLET FRIDAY- FRIDAY Rx Instructions: M-F cholecalciferol (vitamin D3) 1,250 mcg (50,000 unit) capsule 5,000 unit PO DAILY Label Comments: TAKE 1 CAPSULE BY MOUTH ONE TIME A WEEK. Referrals / Follow Up: Jair Billingsley MD [Med Staff - Active Staff] - Within 1 Month Stef Zamora MD [Primary Care Provider] - Within 1 Month Disposition Disposition (needs filled in before D/C Order can be placed): Home, Self Care Charges/Coding Visit Charges Inpatient E&M: 00370 Disch Hosp
--- NOTE | 2022-07-18 13:49 | CL.D_ITS ---
Patient Name: YUDY MILLAN Study Date: 07/17/2022 Performing: Jair Billingsley MD Ht: 75 inches 190.5 cm : 1975 Wt: 299.1 lbs 135.5 kg Age: 46 Gender: male BSA: 2.6 PROCEDURE(S) PERFORMED DC01-(32201)LHC/COR/LV CLINICAL PROFILE AND INDICATIONS Indications: Worsening Angina, ACS <= 24 hrs, Suspected CAD Heart Failure: None Stress/Imaging Stress/Image Study Performed: No Angina Classification Anginal Classification w/in 2 Weeks: CCS III CAD Presentations: Non-STEMI. CONCLUSIONS Elevated Left Ventricular End Diastolic Pressure (mild) Normal LV size, wall motion,and systolic function LVEF: by LV gram 55 % Normal coronary arteries RECOMMENDATIONS Risk factor modification Medical therapy DESCRIPTION OF PROCEDURE The patient arrived to the procedure lab. The risks and benefits of the procedure as well as a full description of our services here and current unavailability of surgical backup were fully explained to the patient and/or their significant other prior to the catheterization. The Timeout was completed, verifying the correct patient and procedure. The patient's procedural site was prepped and draped in the usual fashion. Local anesthetic was given subcutaneously to right radial region with Lidocaine 2%. Using a modified Seldinger technique, arterial access was obtained via the right radial artery, a 6Fr sheath was inserted. Left Coronary Artery selective angiography was performed in multiple views using a 5 Fr. 4.0 [place] catheter. Right Coronary Artery selective angiography was then performed in multiple views using a 5 Fr. 4.0 [place] catheter. Left Ventriculography was performed in JACKSON projection using a 5 Fr. Pigtail catheter. LV to AO pullback pressures were then recorded.The arterial sheath was pulled and a TR Band was applied for hemostasis CORONARY ANGIOGRAPHY DOMINANCE: Right Dominant LEFT HEART ASSESSMENT Left Ventricular Ejection Fraction: by LV Gram 55 % Normal LV wall motion Elevated Left Ventricular End Diastolic Pressure LVEDP: 15 mmHg LEFT MAIN: Angiographically normal LEFT ANTERIOR DESCENDING ARTERY: Angiographically normal CIRCUMFLEX ARTERY: Angiographically normal RAMUS: Angiographically normal RIGHT CORONARY ARTERY: Angiographically normal AORTIC ROOT: Angiographically normal COMPLICATIONS No Complications PROCEDURE MEDICATIONS Fentanyl 50 mcg IV Versed 1 mg IV Oxygen: 2 L/min via nasal cannula Heparin given IA 07/17/2022 09:39:48 Verapamil 2.5mg, Ntg 100mcgs, 3000 units of Heparin given IA 07/17/2022 09:39:48 SUMMARY OF HEMODYNAMIC DATA Time AIR REST ECG 09:10:36 AO 108/73 (90) SA 09:42:08 LV 124/2, 15 09:52:12 LV 121/2, 15 09:52:21 LV 124/2, 15 09:54:05 LV 121/2, 15 09:54:13 LVp 122/0, 16 09:54:17 AOp 128/79 (100) 09:54:24 Signed By Jair Billingsley MD On 07/17/2022 10:18:51 Jair Billingsley MD
== END 2022-07-18 10:27 | disposition home or self-care (01) | DRG 282 ==
LOC: ED 23:12 → PCU 07-17 02:46
PROVIDERS: Internal Medicine Cardiovascular Disease; Admitting Provider Family Medicine; Emergency Provider Emergency Medicine; PCP Internal Medicine; Visit Provider Internal Medicine
DX: I21.4 Non-ST elevation (NSTEMI) myocardial infarction (principal); E66.9 Obesity, unspecified; E89.0 Postprocedural hypothyroidism; F17.220 Nicotine dependence, chewing tobacco, uncomplicated; I10 Essential (primary) hypertension; Z68.37 Body mass index [BMI] 37.0-37.9, adult; Z79.899 Other long term (current) drug therapy; Z86.79 Personal history of other diseases of the circulatory system; Z82.49 Family history of ischemic heart disease and other diseases of the circulatory system
CPT/HCPCS: 36415; 71046; 71275; 80048; 80053; 80061; 83735; 84443; 84484; 85025; 85027; 85610; 85730; 86658; 87428; 87633; 93005; 93306; 93458; 99152; 99153; 99252; 99284; J7030; Q9967; A4216; C1769; C1894; G0463; J2405

== ENCOUNTER → 2022-11-23 | Outpatient (CLI) | payer BC, SELFPAY ==
[2022-11-23 11:42] LABS: AST(SGOT) 17 U/L (15-37); Alanine Aminotransfer ALT/SGPT 22 U/L (16-61); Albumin, Serum 3.7 g/dL (3.2-5.0); Alkaline Phosphatase 160 U/L (45-117); Bilirubin, Direct 0.13 mg/dL (0.00-0.30); Cholesterol 202 mg/dL (200); Globulin 3.8 g/dL (2.2-4.2); High Density Lipoprotein 36 mg/dL; Protein, Total 7.5 g/dL (6.4-8.2); Triglycerides 265 mg/dL; Very Low Density Lipoprotein 53 mg/dL (5-40)
== END | disposition home or self-care (01) ==
PROVIDERS: PCP Internal Medicine; Referring Provider Nurse Practitioner Gerontology; Visit Provider Nurse Practitioner Gerontology
DX: E78.1 Pure hyperglyceridemia (principal)
CPT/HCPCS: 36415; 80061; 80076

== ENCOUNTER → 2023-06-02 | Outpatient (CLI) | payer BC, SELFPAY ==
[2023-06-02 10:32] LABS: AST(SGOT) 12 U/L (15-37); Alanine Aminotransfer ALT/SGPT 21 U/L (16-61); Albumin, Serum 3.7 g/dL (3.2-5.0); Alkaline Phosphatase 166 U/L (45-117); Bilirubin, Direct 0.12 mg/dL (0.00-0.30); Cholesterol 248 mg/dL (200); Globulin 4.2 g/dL (2.2-4.2); High Density Lipoprotein 36 mg/dL; Protein, Total 7.9 g/dL (6.4-8.2); Triglycerides 367 mg/dL; Very Low Density Lipoprotein 73 mg/dL (5-40)
== END | disposition home or self-care (01) ==
LOC: LAB 08:29
PROVIDERS: PCP Internal Medicine; Referring Provider Nurse Practitioner Gerontology; Visit Provider Nurse Practitioner Gerontology
DX: E78.1 Pure hyperglyceridemia (principal)
CPT/HCPCS: 36415; 80061; 80076

== ENCOUNTER 2023-09-22 11:16 | Emergency (ER) | payer BC, SELFPAY ==
[2023-09-22 11:17] VITALS: BP 154/87; PULSE 77; RESP 16; TEMP 36; O2SAT 97; BMI 36.6
--- NOTE | 2023-09-22 11:46 | RAD_ITS ---
STUDY: X-RAY - LEFT KNEE REASON FOR EXAM: Male, 48 years old. Atraumatic left knee pain. TECHNIQUE: 4 views of the left knee. COMPARISON: None. FINDINGS: Normal visualized distal femur. Normal visualized proximal tibia and fibula. Normal proximal tibiofibular articulation. There is no demonstrated fracture. Normal medial femorotibial compartment. Normal lateral femorotibial compartment. Normal patellofemoral articulation. The soft tissue structures are unremarkable. RAD/Knee 4 or More Views IMPRESSION: No demonstrated fracture. Electronically Signed: Tima Dooley MD at 12:06 EDT ,
--- NOTE | 2023-09-22 11:47 | EDS_ITS ---
HPI History of Present Illness HPI Narrative: 48-year-old male with atraumatic left knee pain for the last several days. Said it was kind of sore and he was walking and he felt a pop medially and has had worse pain since that time. He has never had any issues with his left knee. He has had 3 prior knee surgeries on his right knee after an ACL tear and meniscal surgeries on his right knee. He denies any fever or redness. Worse with movement. Chief Complaint: Lower Extremity Injury Informant: patient Occured/Mechanism Mechanism/Context: No injury, No blunt trauma and No car vs ped Onset/Context/Timing Onset: Days Context: Gradual Onset Timing: Continuous Quality of Pain: Dull and Aching Current Severity: Mild Maximum Severity: Mild Associated Symptoms Associated Symptoms: Negative for Parasthesia, Weakness or Loss of Funtion Narrative Narrative: 48-year-old male with atraumatic left knee pain. No prior history of surgery. No redness or fever. Prior history of 3 surgeries to his right knee. Prior similar symptoms: No Recent Illness/Hospitalization: No PFSH PFSH Medical History Chewing tobacco use History of viral myocarditis Hypothyroidism Hypothyroidism Migraines Obesity Thyroid cancer Home Medications cholecalciferol (vitamin D3) 1,250 mcg (50,000 unit) capsule 5,000 unit PO DAILY 07/17/22 [History Last Taken Unknown] levothyroxine 150 mcg tablet 150 mcg PO DAILY 07/17/22 [History Last Taken Unknown] levothyroxine 200 mcg tablet 200 mcg PO DAILY 07/17/22 [History Last Taken Unknown] aspirin 81 mg tablet,delayed release 81 mg PO BREAKFAST #0 tabs 07/18/22 [Rx Last Taken Unknown] ezetimibe 10 mg tablet (Zetia) 10 mg PO DAILY #90 tabs 07/16/23 [Rx Last Taken Unknown] carvedilol 6.25 mg tablet See Rx Instructions .Route .COMPLEX #180 TABLETS 08/08/23 [Rx Last Taken Unknown] lisinopril 2.5 mg tablet See Rx Instructions .Route .COMPLEX #90 tabs 08/08/23 [Rx Last Taken Unknown] Allergy/AdvReac Type Severity Reaction Status Date / Time atorvastatin AdvReac Myalgias Verified 09/22/23 11:19 Family History Father Diabetes Hypertension CAD (coronary artery disease) Myocardial infarction Mother Hypertension Uncle CAD (coronary artery disease) Myocardial infarction Hypertension Surgical History H/O vasectomy History of appendectomy History of arthroplasty of right knee History of left heart catheterization (07/17/22) History of thyroidectomy Social History household members: spouse Smoking Status: Never smoker Smokeless tobacco user: chewing tobacco and other quit status: considering quitting alcohol intake: never substance use type: does not use ROS ROS ED ROS Narrative Denies recent illness. Review of Systems ROS Unobtainable: Denies due to encephalopathy Constitutional Constitutional ED: Denies chills or fever(s) Eyes Eyes: Denies blurry vision ENT ENT ED: Denies ear pain Cardiovascular Cardiovascular: Denies chest pain Respiratory/Chest Respiratory/Chest: Denies cough or dyspnea Gastrointestinal Gastrointestinal: Denies abdominal pain Genitourinary Genitourinary ED: Denies dysuria or hematuria Musculoskeletal Musculoskeletal: Denies arthralgias or back pain Integumentary Denies abscess or Abrasions Neurologic Neurologic: Denies headache(s) Psychiatric Psychiatric: Denies anxiety or depression Endocrine Endocrinology: Denies polydipsia, polyphagia or polyuria Hematologic/Lymphatic Hematologic/Lymphatic: Denies easy bleeding, easy bruising or lymphadenopathy Allergic/Immunologic Allergic/Immunologic ED: Denies mouth swelling, tongue swelling or urticaria EXAM Physical Exam Narrative Exam Narrative: Well-appearing 48-year-old male vital signs stable afebrile. HEENT exam unremarkable. Neck nontender no lymphadenopathy. Lungs clear to auscultation bilaterally. Heart regular rhythm no murmur. Chest wall nontender. Abdomen soft nontender. Moving all 4 extremities. Neurovascular intact. Specifically left hip knee ankle and foot has normal range of motion. Normal flexion extension. He has medial tenderness on the anterior medial and medial aspect of his left knee. There is no effusion. There is no redness or warmth. No signs of septic joint. ACL, PCL, MCL and LCL are all intact. He does have pain with stressing the left knee medially. There is no bony deformity. Normal dorsi plantarflexion intact of his left foot. Neurologically is awake and alert with no focal motor deficits. Const Vital Signs: 09/22/23 11:17 09/22/23 11:17 Temperature 96.8 F L 96.8 F L Temperature Source Temporal Temporal Pulse Rate 77 77 Respiratory Rate 16 16 Blood Pressure 154/87 H 154/87 H Blood Pressure Mean 109 109 Pulse Ox 97 97 Oxygen Delivery Method Room Air Room Air Positive well developed; Negative for cachectic, contractures or unkempt General Appearance ED: well developed and NAD; Negative for unkempt, cachectic or contractures Nutritional Appearance: Negative for cachectic HEENT Reports moist mucous membranes normocephalic and atraumatic; Negative for trauma or tenderness Eyes PERRL General Eye ED: Negative for other Neck full ROM and supple Thyroid: Negative for tender Lymph Lymphatic: Negative for other Chest Wall inspection of chest normal and palpation of chest normal Chest: Negative for other Resp normal respiratory effort, no retractions and clear to auscultation bilaterally Effort and Inspection: Negative for pain with movement Auscultation: Negative for rales, rhonchi, wheezes or diminished lung sounds Cardio regular rate, regular rhythm, S1 normal heart sound, S2 normal heart sound and no murmurs Rate: Negative for bradycardia or tachycardic Rhythm: Negative for abnormal rhythm Bruits: Negative for other GI non-tender, non-distended and no masses Inspection: Negative for abdominal distention Auscultation: normoactive bowel sounds Palpation: soft; Negative for tender, guarding or rebound tenderness present Bladder / Kidney Exam: No other Back/Spine no CVA tenderness General Back: Negative for CVA tenderness, swelling or other Cervical Spine: Negative for cervical spine tenderness Thoracic Spine / Upper Back: Negative for thoracic spinal tenderness Lumbar Spine / Lower Back: Negative for lumbar spinal tenderness Extremity normal to inspection and full ROM Extremity Narrative: Tenderness left knee medially. No redness or warmth. No swelling or effusion. No bony deformity. Normal range of motion. General Extremety ED: Yes weight-bearing difficulty; Negative for cyanosis or edema General Extremity: weight-bearing difficulty; Negative for cyanosis or edema Neuro oriented x3, CN's II-XII intact bilaterally, moves all extremities and no sensory deficits noted Sensorium / Orientation: alert, oriented to person, oriented to place and oriented to time; Negative for orientation impaired, confused, lethargic or stuporous Motor Exam: strength 5/5 throughout Psych mental status grossly normal Appearance: Negative for unkempt Speech: No other Mood & Affect: Negative for anxious Skin no wounds Lesions: no lesions Rashes: no rashes Trauma: Negative for abrasion, laceration or puncture MDM MDM MDM Narrative Medical decision making narrative: 40-year-old male with atraumatic left knee pain. X-ray being obtained. No signs of infection. No effusion. Does not need an injection. Repeat exam patient doing well at 12:29 PM. Repeat exam unchanged. No swelling. No redness. Good endpoint on medial stress. Good flexion extension. No effusion. No septic joint. He and I went over his x-ray results and was basically normal. Outpatient follow-up with [facility] who is seen before in the past. Radiography Chest X-Ray - ED: Read by ED Physician Diagnostic Testing: Clinical Impression(s) from Imaging Studies Knee X-Ray 09/22/23 11:46 IMPRESSION: No demonstrated fracture. Electronically Signed: Tima Dooley MD at 12:06 EDT , Left knee x-ray, 4 views, interpreted by me shows and the radiologist shows no acute abnormality. Normal joint space. Normal patella. Normal tib-fib and femur. No joint space narrowing. No arthritis. No fracture. No effusion. Discharge Plan Triage Chief Complaint: Lower Extremity Injury ED Provider: Luis Clement Dx/Rx/DC Orders Clinical Impression: Acute pain of left knee, History of hypertension Instructions: Knee Pain Prescriptions: No Action ezetimibe [Zetia] 10 mg tablet 10 mg PO DAILY Qty: 90 3RF levothyroxine 150 mcg tablet 150 mcg PO DAILY Patient Comments: TAKE 1 TABLET BY MOUTH ONCE DAILY. PLEASE TAKE FRIDAY AND FRIDAY Rx Instructions: FRIDAY AND FRIDAY levothyroxine 200 mcg tablet 200 mcg PO DAILY Patient Comments: TAKE 1 TABLET BY MOUTH ONCE DAILY. PLEASE TAKE 1 TABLET FRIDAY- FRIDAY Rx Instructions: M-F cholecalciferol (vitamin D3) 1,250 mcg (50,000 unit) capsule 5,000 unit PO DAILY Patient Comments: TAKE 1 CAPSULE BY MOUTH ONE TIME A WEEK. aspirin 81 mg Tablet,Delayed Release (Dr/Ec) 81 mg PO BREAKFAST Qty: 0 0RF carvedilol 6.25 mg tablet See Rx Instructions .ROUTE .COMPLEX Qty: 180 3RF Dose Instruction: TAKE 1 TABLET BY MOUTH TWICE A DAY WITH MEALS Rx Instructions: TAKE 1 TABLET BY MOUTH TWICE A DAY WITH MEALS lisinopril 2.5 mg tablet See Rx Instructions .ROUTE .COMPLEX Qty: 90 3RF Dose Instruction: TAKE 1 TABLET BY MOUTH EVERY DAY Rx Instructions: TAKE 1 TABLET BY MOUTH EVERY DAY Primary Care Provider: Stef Goodman Referrals: Vik Garcia DO [Med Staff - Active Staff] - As soon as possible Stef Goodman MD [Primary Care Provider] - Activity Restrictions/Additional Instructions: Motrin for pain and inflammation and Tylenol for pain. Ice to your knee. Call and follow-up with Dr. Vik garcia of [facility] for further evaluation. This may or may not be a meniscal tear versus other causes your pain. Your x-ray was normal. Disposition Disposition: Home, Self Care
[2023-09-22 12:51] VITALS: BP 145/84; PULSE 64; RESP 17; TEMP 36.6; O2SAT 97
== END 2023-09-22 12:53 | disposition home or self-care (01) ==
PROVIDERS: Emergency Provider Emergency Medicine; PCP Internal Medicine; Visit Provider Emergency Medicine
DX: M25.562 Pain in left knee (principal)
CPT/HCPCS: 73564; 99282

== ENCOUNTER → 2023-10-15 | Outpatient (CLI) | payer BC, SELFPAY ==
--- NOTE | 2023-10-15 07:35 | EKG12_ITS ---
Test Reason : PREOP Blood Pressure : / mmHG Vent. Rate : 067 BPM Atrial Rate : 067 BPM P-R Int : 166 ms QRS Dur : 102 ms QT Int : 402 ms P-R-T Axes : -03 -12 -06 degrees QTc Int : 424 ms Normal sinus rhythm Normal ECG Confirmed by MATEO EMERSON, EDUARD ([id number]), index editor BANDAR FULLER ([id number]) on 10/20/2023 1:42:15 PM Referred By: Popeye Page Confirmed By:MAXI GALINDO MD
[2023-10-15 09:20] LABS: Absolute Lymphocyte Count 3.32 X10^3/uL (0.83-4.51); Absolute Neutrophil Count 3.9 X10^3/uL (2.0-7.7); Basophil# 0.08 X10^3/uL; Eosinophil# 0.25 X10^3/uL; Eosinophils% 3.1 % (0-5); Hematocrit 43.9 % (40-54); Lymphocyte # 3.32 X10^3/ul (0.83-4.51); Lymphocyte % 41.2 % (19-41); Mean Corp Hgb Conc 31.9 g/dL (32-36); Mean Corpuscular Hgb 26.8 pg (27.0-32.0); Mean Corpuscular Volume 83.9 fL (80-94); Mean Platelet Vol. 10.3 fl (6.2-12.0); Monocyte# 0.43 X10^3/uL; Monocyte% 5.3 % (0-10); NRBC Flagged by Analyzer 0 % (0-5); Neutrophil # 3.94 X10^3/uL (2.7-7.7); Platelet Count 349 K/mm3 (150-450); RBC Distribution Width CV 12.9 % (11.6-14.6); RBC Distribution Width SD 39.2 fl (35.1-43.9); Red Blood Count 5.23 M/mm3 (4.6-6.2); White Blood Count 8.1 K/mm3 (4.4-11.0)
[2023-10-15 09:54] LABS: AST(SGOT) 20 U/L (15-37); Alanine Aminotransfer ALT/SGPT 23 U/L (16-61); Albumin, Serum 3.6 g/dL (3.2-5.0); Alkaline Phosphatase 159 U/L (45-117); Anion Gap 4 (5-15); BUN 19 mg/dL (7-18); BUN/Creat Ratio 15.7 RATIO (10-20); Chloride 104 mmol/L (98-107); Cholesterol 215 mg/dL (200); Creatinine, Serum 1.21 mg/dL (0.70-1.30); EST Glomerular Filtration Rate 68 mL/min (>60); Est Glom Filt Rate - Afr Amer 82 mL/min (>60); Globulin 4.3 g/dL (2.2-4.2); Glucose 96 mg/dL (74-106); High Density Lipoprotein 35 mg/dL; Potassium 4.3 mmol/L (3.5-5.1); Protein, Total 7.9 g/dL (6.4-8.2); Sodium Level 136 mmol/L (136-145); Triglycerides 350 mg/dL; Very Low Density Lipoprotein 70 mg/dL (5-40)
== END | disposition home or self-care (01) ==
PROVIDERS: Nurse Practitioner Gerontology; PCP Internal Medicine; Referring Provider Physician Assistant Surgical; Visit Provider Physician Assistant Surgical
DX: Z01.818 Encounter for other preprocedural examination (principal); E78.1 Pure hyperglyceridemia
CPT/HCPCS: 36415; 80048; 80061; 80076; 85025; 93005

== ENCOUNTER → 2025-05-12 | Outpatient (CLI) | payer BC, SELFPAY ==
--- NOTE | 2025-05-12 15:00 | LES_PTH ---
PATIENT: YUDY MILLAN LOC: [facility] U#:[id number] AGE/SX: 49/M ROOM: RE05/12/[address]: Dr. Armando Jamil MD : [id number] BED: DIS: 05/12/2025 SPEC #: [id number] RECD: 05/12/25 15:26 STATUS: SHELIA REVenus #: [id number] TALHA: 05/12/25 15:[address]: Armando Jamil DEPT: SURGICAL PATHOLOGY RECD BY: Trell Morel ENTERED: 05/13/25 10:04 SP TYPE: Lesion OTHR DR: Dr. Stef Goodman MD Tissues: A - Oral cavity, NOS Procedures: Surgery Specimen Level IV HEADER OPERATION: Oral permanent pathology PRE-OP DIAGNOSIS: Oral mass / lesion TISSUE SUBMITTED: A- Oral mass MICROSCOPIC DIAGNOSIS A. Oral cavity, biopsy: * Fibroma MICROSCOPIC DESCRIPTION Slides are reviewed. GROSS DESCRIPTION A. Received in formalin labeled with the patient's name and date of . Designated as oral mass/lesion is a 0.4 x 0.3 x <0.1 cm almaraz, irregular portion of apparent mucosa. The resection margin is inked black. There is a 0.3 x 0.3 x 0.2 cm almaraz-white, well-circumscribed, firm lesion abutting the peripheral edge. The specimen is bisected (on the long axis) and entirely submitted in 1 cassette. [place] 05/13/2025 CPT:02964
== END | disposition home or self-care (01) ==
LOC: LABSPEC 15:39
PROVIDERS: PCP Internal Medicine; Referring Provider Otolaryngology; Visit Provider Otolaryngology
DX: K13.70 Unspecified lesions of oral mucosa (principal)
CPT/HCPCS: 88305